=== PATIENT | male | born 1960 | race Caucasian/White ===

== ENCOUNTER 2024-02-01 09:51 | Outpatient (AMB) | payer OTHER, SELFPAY ==
--- NOTE | 2024-02-01 10:09 | A.SPINEOV_ITS ---
Intake Visit Reasons: low back pain Intake Note: Mr. 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 What he experiences iis back pain in the center of his back that radiates out to the left. He will also get a sciatic pain wh ich runs from his buttock down into his leg and gets numbness of his left foot. He was seen at [facility] and by [facility]. had originally recommended maybe doing a operation, but then referred the patient over to Dr. Pond who recommended doing a fusion. The patient was worried that it was maybe a little bit aggressive what he was trying to accomplish and what he was intending to do so they wanted to get another opinion. The patient's daughter works as a physician assistant professor of drama at [employer] and had heard of us and came today for a 3rd opinion on the matter. The patient has tremendous amounts of pain in the morning. He also has pain with activity such as bending. He has to do numerous stretching and yoga type exercises throughout the day just to be able to function. Interestingly, he can walk good distances before he gets any pain. But standing in place, sitting down for any length of time or lying down gives him tremendous pain in his back and down his leg. Been taking anti-inflammatories such as Motrin for years. He is recently tried Lyrica. He did cortisone injections and these things did seem to help for awhile but the affect seems to be wearing off. He did physical therapy for many many months. He comes today to see us with an MRI at [facility] showing severe stenosis at L4-5 and spondylolisthesis on standing flexion- extension x-rays. PMH: History of gout, BPH, PVCs, bilateral total knee replacement. No history of cardiac disease, strokes, pulmonary problems, liver disease, major abdominal surgery, bleeding disorders, blood clots etc.. Social hx: He does not smoke, drink or use any recreational drugs Medications: Flomax, metoprolol, allopurinol, nabumetone, Lyrica Allergies: None Physical exam: Awake alert oriented no acute distress, on motor exam he does have a 4-5 weakness of his left dorsiflexion and some mild weakness of his left quadriceps. Reflexes are absent at the patella bilaterally. Imaging review: Lumbar MRI done at [facility] as well as flexion- extension x-rays and standing position. This shows a grade 1 spondylolisthesis at L4-5 which translates significantly anteriorly with flexion. He does have some foraminal stenosis at L5-S1 in the left L5 foramen. Impression: 63-year-old gentleman presents to the office today for 3rd opinion on his lumbar spine. His symptomatic with midline back pain which radiates to the left side, radiates down his left leg with numbness of his foot. Has weakness of his dorsiflexion and quadriceps on the left. He has been through numerous rounds of conservative treatment in his seen 2 other surgeons. Wanted to get another opinion, because the surgeon who we saw [facility] seemed to be a little aggressive for his taste and wanted to get another thought on the matter. The original surgeon that he saw at [facility] Dr. Sanchez recommended not doing surgery at all. Dr. Soria saw the patient with me today, we reviewed his imaging and believe he had be an excellent candidate for an L4-5 oblique lumbar interbody fusion. We quoted success rate of 90% for the leg pain, 60-70% for the back pain. The patient is interested in proceeding so we booked him for March 25. Pt was given risk and benefits of surgery including but not limited to infection, hematoma , nerve injury,durotomy, weakness,bowel/bladder injury, persistent pain, adjacent segment disease as well as the option to continue with conservative treatment and patient wishes to proceed with surgery. Pt is aware they should stop their motrin, aspirin 7 days prior to surgery. All questions were answered to the best of our ability. If there is anything about this patients medical history that we have overlooked or concerns you have about us proceeding with surgery we would appreciate any input you can offer. Thank you for allowing us to care for your patient. The total time spent with this visit with this patient was 45 minutes reviewing history, physical exam, lumbar imaging review, and implementation of treatment plan or further diagnostic testing Yoshi Soria MD,PhD [facility] Coding Level of Care Code New Pt Level 4 (34956) Diagnoses Spondylolisthesis, lumbar region M43.16
== END 2024-02-01 11:10 | disposition home or self-care (01) ==
PROVIDERS: PCP Internal Medicine; Visit Provider Physician Assistant
DX: M43.16 Spondylolisthesis, lumbar region (principal)
CPT/HCPCS: 99204

== ENCOUNTER → 2024-02-01 09:51 | Outpatient (BNVA) | payer OTHER, SELFPAY | PROVIDERS: PCP Internal Medicine; Visit Provider Physician Assistant ==

== ENCOUNTER 2024-04-15 06:07 | Inpatient (IN) | payer OTHER, SELFPAY ==
--- NOTE | 2024-03-12 | ECG_ITS ---
Test Reason : pre op Blood Pressure : / mmHG Vent. Rate : 074 BPM Atrial Rate : 074 BPM P-R Int : 132 ms QRS Dur : 084 ms QT Int : 412 ms P-R-T Axes : 053 013 027 degrees QTc Int : 457 ms Sinus rhythm with frequent Premature ventricular complexes in a pattern of bigeminy Abnormal ECG No previous ECGs available Referred By: Irma Cartagena Electronically Signed By:BRITTA LOCK
[2024-03-12 12:12] VITALS: BP 136/78; PULSE 60; RESP 16; O2SAT 99; BMI 35.9
[2024-04-15] VITALS (15 sets, daily range): BP systolic 108–138; BP diastolic 64–91; PULSE 67–88; RESP 12–20; TEMP 36.1–36.9; O2SAT 95–100; BMI 36.2
--- NOTE | ~2024-04-15 | FL_ITS ---
INDICATION: Intraoperative fluoroscopy. FLUOROSCOPY: Fluoroscopy Time: 1.56 minutes Dose/air kerma: 96.921 mGy FINDINGS: Multiple intraoperative fluoroscopic images are submitted during reported L4-L5 oblique lumbar interbody fusion. Correlation with operative report. Evaluation is limited secondary to fluoroscopic technique. FL/FL guidance in OR IMPRESSION: Intra-operative fluoroscopic imaging provided by radiology during reported L4-L5 oblique lumbar interbody fusion. Please refer to operative note for further information. Electronically signed by: Claire Horne MD 04/15/2024 10:36 AM [facility]
[2024-04-15] MEDS: Gabapentin 300 MG CAPSULE PO (06:35)
[2024-04-15] MEDS: methocarbamoL 750 MG TABLET PO (06:35)
[2024-04-15] MEDS: Lactated Ringers 1,000 ML 100 ML IVCONT (06:49)
--- NOTE | 2024-04-15 06:57 | MHC.SHP ---
Pre-Procedural Eval Section A - 24 Hr Update-Section A only Date of Service: 04/15/24 The patient is an INPATIENT: No Changes since office visit: No Cold of Flu in the past 2 weeks, No New Medical Problems, No Changes in Medication and No Patient answered all questions The patient has been examined within 24 hours of the surgical procedure. The History & Physical has been completed within 30 days and I have reviewed it.: No Section B - Complete if H&P > 30 days Chief Complaint: s/p L-4-5 OLIF Allergies: Allergies Allergy/AdvReac Type Severity Reaction Status Date / Time No Known Allergies Allergy Verified 03/12/24 12:10 Review of Systems Sugical H&P ROS: Negative: Constitution, Cardiovascular, Respiratory, Neurological, Psychiatric, Hem-Onc, Allergic/Immunologic, Gastrointestinal, Genitourinary, Musculoskeletal, Integumentary, Endocrine and Eyes/Ears/Nose/Throat Exam Surgical H&P Exam: Normal: HEENT, Normal: Heart, Normal: Lungs, Normal: Extremities, Normal: Abdomen, Normal: Skin and Normal: Neurological (awake,alert,oriented x 3 ) Plan Diagnosis/Plan: Unchanged L4-5 Oblique lumbar interbody fusion Time Spent With Patient Time: Total time managing care of this patient today _6___ minutes.
--- NOTE | 2024-04-15 07:25 | HO.ANESPROP2 ---
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 Stable at yearly 10/2023 office visit. GERD: rare Tums TIMOTEO: CPAP QHS PVC: Follows cardiology, yearly routine, last 09/2023 Fall / rolled riding mower 03/10 - Right knee hematoma, LUE abrasions. Sought emergency care at [facility], no acute injury, no LOC, d/c home Bilat hearing aids PMFSH Active Problems Active Problems: All Active Problems Spondylolisthesis, lumbar region (Acute) Past Medical History Medical History (Updated 03/12/24 @ 12:38 by Shraddha Davies, RENATO) Low back pain Abrasion of left upper arm Hematoma of right knee region History of recent fall (~03/10/24) Gout Hx of seasonal allergies [place] (hard of hearing) TIMOTEO on CPAP PVC (premature ventricular contraction) GERD (gastroesophageal reflux disease) Family History Family history of problems with anesthesia: No Surgical History Surgical History (Updated 04/15/24 @ 06:42 by Shruthi Castanon RN) Hx of colonoscopy (~2019) Hx of arthroscopy of shoulder (~2013) Hx of appendectomy History of bilateral knee arthroplasty (~2016) History of Problems with Anesthesia: No Social History Social History (Updated 03/12/24 @ 12:37 by Shraddha Davies RN) Household Members: Spouse Housing: House Are you a primary customer care assistant to a significant other at home: No Do you presently have visiting nurse or other home services: No Comment: aware of trip hazards Patient Tobacco Use Status: Never used Tobacco Use of substances other than those prescribed or required for medical reasons: No Have you been hit, kicked, punched, or otherwise hurt by someone within the past year? If so, by whom?: No Are you DNR?: No Advance Directives: No Advance Directives Information Provided: Yes Advance Directives on File: No Recently lost weight without trying: No Nutrition Risks: No Nutritional Risk Poor oral hygiene: No Meds Allergies Allergy/AdvReac Type Severity Reaction Status Date / Time No Known Allergies Allergy Verified 03/12/24 12:10 Home Medications ?Medication ?Instructions ?Recorded ?Confirmed ?Last Taken ?Type acetaminophen 500 mg tablet 1,000 mg PO QID PRN Pain 03/12/24 03/12/24 04/14/24 History allopurinol 100 mg tablet 100 mg PO DAILY 03/12/24 03/12/24 04/15/24 History allopurinol 300 mg tablet 300 mg PO DAILY 03/12/24 03/12/24 04/15/24 History calcium carbonate (Tums) 2 mg PO BID PRN Gastric Reflux 03/12/24 04/15/24 04/13/24 History metoprolol succinate 25 mg 25 mg PO DAILY 03/12/24 03/12/24 04/15/24 History tablet,extended release 24 hr tamsulosin 0.4 mg capsule 0.4 mg PO DAILY 03/12/24 03/12/24 04/14/24 History Exam Height,Weight and Vital Signs: Height 5 ft 9 in Weight 110.4 kg Last Vital Signs Pulse 60 03/12/24 12:12 Resp 16 03/12/24 12:12 BP 136/78 03/12/24 12:12 Pulse Ox 99 03/12/24 12:12 O2 Del Method Room Air 03/12/24 12:12 Pertinent Lab Results Pertinent Lab Results: Lab Results 03/12/24 Range/Units 13:16 Blood Type A Negative Antibody Screen NEGATIVE Narrative Narrative: EKG 03/2024 Vent. Rate : 074 BPM Atrial Rate : 074 BPM P-R Int : 132 ms QRS Dur : 084 ms QT Int : 412 ms P-R-T Axes : 053 013 027 degrees QTc Int : 457 ms Sinus rhythm with frequent Premature ventricular complexes in a pattern of bigeminy Abnormal ECG No previous ECGs available (From outside facility 2022, SR with freq PVCs in trigeminy) ECHO 2021 Suboptimal views d/t body habitus LV size nml Borderline LVH LV sys function is nml with EF 55-60% Grade 1 DD with impaired relaxation filling pattern No wall motion abnormalities LA size is nml RV sys function is nml RA mildly dilated Trace AR Trace MR No pulmo htn No change from 2019 Airway Loose/Missing/Broken Teeth: No (crowned molars) Heart: RRR Lungs: CTAB Assessment and Plan Assessment Anesthesia Assessment: Anesthesia Plan Discussed and PAT Visit Final Anesthetic Review Family History of Problems with Anesthesia: No History of Problems with Anesthesia: No Documented by User: Rubia Lindquist DO 04/15/24 08:00 [facility] Past Medical History Medical History (Updated 03/12/24 @ 12:38 by Shraddha Davies, RN) Low back pain Abrasion of left upper arm Hematoma of right knee region History of recent fall (~03/10/24) Gout Hx of seasonal allergies [place] (hard of hearing) TIMOTEO on CPAP PVC (premature ventricular contraction) GERD (gastroesophageal reflux disease) Family History Family history of problems with anesthesia: No Surgical History Surgical History (Updated 04/15/24 @ 06:42 by Shurthi Castanon RN) Hx of colonoscopy (~2019) Hx of arthroscopy of shoulder (~2013) Hx of appendectomy History of bilateral knee arthroplasty (~2016) History of Problems with Anesthesia: No Social History Social History (Updated 03/12/24 @ 12:37 by Shraddha Davies, RENATO) Household Members: Spouse Housing: House Are you a primary customer care assistant to a significant other at home: No Do you presently have visiting nurse or other home services: No Comment: aware of trip hazards Patient Tobacco Use Status: Never used Tobacco Use of substances other than those prescribed or required for medical reasons: No Have you been hit, kicked, punched, or otherwise hurt by someone within the past year? If so, by whom?: No Are you DNR?: No Advance Directives: No Advance Directives Information Provided: Yes Advance Directives on File: No Recently lost weight without trying: No Nutrition Risks: No Nutritional Risk Poor oral hygiene: No Meds Allergies Allergy/AdvReac Type Severity Reaction Status Date / Time No Known Allergies Allergy Verified 03/12/24 12:10 Home Medications ?Medication ?Instructions ?Recorded ?Confirmed ?Last Taken ?Type acetaminophen 500 mg tablet 1,000 mg PO QID PRN Pain 03/12/24 03/12/24 04/14/24 History allopurinol 100 mg tablet 100 mg PO DAILY 03/12/24 03/12/24 04/15/24 History allopurinol 300 mg tablet 300 mg PO DAILY 03/12/24 03/12/24 04/15/24 History calcium carbonate (Tums) 2 mg PO BID PRN Gastric Reflux 03/12/24 04/15/24 04/13/24 History metoprolol succinate 25 mg 25 mg PO DAILY 03/12/24 03/12/24 04/15/24 History tablet,extended release 24 hr tamsulosin 0.4 mg capsule 0.4 mg PO DAILY 03/12/24 03/12/24 04/14/24 History Exam Exam Date and Time: 04/15/24 0725 Height,Weight and Vital Signs: Height 5 ft 9 in Weight 110.4 kg Last Vital Signs Pulse 60 03/12/24 12:12 Resp 16 03/12/24 12:12 BP 136/78 03/12/24 12:12 Pulse Ox 99 03/12/24 12:12 O2 Del Method Room Air 03/12/24 12:12 Vital Signs Pulse Rate 60 03/12/24 12:12 Respiratory Rate 16 03/12/24 12:12 Blood Pressure 136/78 03/12/24 12:12 Pulse Oximetry 99 03/12/24 12:12 Oxygen Delivery Method Room Air 03/12/24 12:12 Temperature 98.5 F 04/15/24 06:25 Pulse Rate 72 04/15/24 06:25 Respiratory Rate 20 04/15/24 06:25 Blood Pressure 136/91 H 04/15/24 06:25 Pulse Oximetry 96 04/15/24 06:25 Oxygen Delivery Method Room Air 04/15/24 06:25 Airway Mallampati Class: III TM Dist: <=3cm Neck ROM: Limited Loose/Missing/Broken Teeth: Yes (chipped front tooth) Heart: S1S2 Assessment and Plan Assessment Anesthesia Assessment: Anesthesia Plan Discussed and Chart Reviewed Final Anesthetic Review Family History of Problems with Anesthesia: No History of Problems with Anesthesia: No NPO: Yes ASA Class: II Final Preanesthetic Review: No Changes in Pt Med Stat, Meds/Allgs Chart Reviewed, Consent Obtained/Reviewed and Anes Risks/Benef Reviewed Patient Risk: Intermediate Procedure Risk: Intermediate Anesthetic Plan Anesthetic Plan: GA and Agree w/ Assess. and Plan Disposition: Standard PACU
--- NOTE | 2024-04-15 07:31 | PHA.MEDREC ---
Pharmacy Consult ? Medication Reconciliation Pharmacy has reviewed the medication reconciliation completed by nursing, all claims reflect.
--- NOTE | 2024-04-15 09:48 | P.OP_ITS ---
Operative Note Operative Note Date of Service: 04/15/24 Narrative: Preop Diagnosis: 1.) L4-5 spondylolisthesis Procedure: 1) L4-5 discectomy, arthrodesis and implantation cage through an anterolateral, retroperitoneal approach 2) L4-5 posterior instrumented fusion 3) Allograft 4) Injection of 10 cc of Exparel at the bilateral L4 transverse process for a muscular erector spinae block and additional Exparel in paravertebral tissue for postop management Consent Informed Consent was obtained for this operation. I have explained the nature, purpose and benefits of the operation. I have discussed the risks and benefit of the operation including possible complications or adverse events with patient/family. Alternative(s) were discussed with the patient with their relative benefits and risks as well as the consequences of not accepting the operation were included in obtaining consent. Surgeon: DIAMOND LOJA MD, PHD Procedure Assisted By: faheem De Luna Description of Procedure This 63-year-old male suffering from back pain. Imaging reviews an unstable L4- 5 spondylolisthesis. The patient was offered an oblique lumbar interbody fusion L4-5. The procedure complications were explained. The patient was consented. The patient was brought to the operating room and endotracheally intubated. The patient was turned in a lateral position with the left side up. Prep and drape was done followed by timeout. A small incision was made in the left lower abdominal quadrant. The muscle fascia was opened after which the 3 muscle layer was split to enter the retroperitoneal space. Dilators were docked in the anterior one third of the L4-5 disc space followed by a retractor. The retractor was opened. The L4-5 disc space was exposed. An annulotomy was done after which an elevator Holt was used to release the disc material from its endplates and to perforate the contralateral side. A partial discectomy was done. An 8, 10 and 12 height trial implant was inserted. The discectomy was completed. The endplates were prepared. An 12 x 55 mm with 0 degree lordosis 4 web cage filled with allograft was inserted into the disc space under fluoroscopic guidance. This resulted in reduction of the L4-5 spondylolisthesis. The retractor was removed. Hemostasis was done. The incision was closed in 2 layers. Steri-Strips used to approximate incision. An OpSite with Tegaderm was used to cover the incision. This marked first part of the procedure. The patient was turned prone on the Yo spine table. 2C arms were installed for fluoroscopy. Prep and drape was done followed by a second timeout. Injection of 10 cc of Exparel at the bilateral L4 transverse process for a muscular erector spinae block and additional Exparel in paravertebral tissue for postop management was given. 2 paramedian incisions were made lateral from the L4 and L5 pedicles. The muscle fascia was opened after which the muscle layer was split bluntly to expose the posterolateral gutter. The following steps were taken. A pediguard tap was used to create a transpedicular trajectory into the vertebral body. A K wire was placed. A specially designed instrument was advanced over the K wire to decorticate the posterolateral gutter in preparation for the posterolateral fusion. A pedicle screw was advanced over the K wire and the K wire was removed. The steps were done for the bilateral L4 and L5 pedicles. A total of 4 screws were placed with a diameter of 6.5 x 50 mm. Pedicle screws were connected with 45 mm giorgio bilaterally and locked down with locking caps. The extension towers were removed. The posterolateral gutter was filled with allograft to complete the posterolateral L4-5 fusion Hemostasis was done and the incision was closed in 2 layers. Steri-Strips were used to approximate the incision. An OpSite were taken and was used to cover the incision. All sponge and needle counts were correct. Patient was extubated and transferred in stable is to recovery room. Anesthesia: General Estimated Blood Loss (ml): 30 mL Duration of Surgery: 2 hours Complications: None Postoperative Plan: Admit to inpatient for observation
[2024-04-15] MEDS: HYDROmorphone HCl 0.5 MG/0.5 ML SYRINGE IVPUSH (11:01)
[2024-04-15] MEDS: 0.9 % Sodium Chloride 1,000 ML 75 ML IVCONT (13:27)
--- NOTE | 2024-04-15 13:34 | PC.NURSE ---
Pharmacy called, pt needs to be uploaded into the pyxis. They state IT is working on getting this patient in the medication machine.
--- NOTE | 2024-04-15 15:00 | PC.NURSE ---
Pharmacy and IT continue to work on issues with Medication Pyxis.
[2024-04-15] MEDS: ceFAZolin Sodium/Dextrose,Iso 2 GM/50 ML PIGGYBACK IV ×2 (15:21→20:48)
[2024-04-15] MEDS: Ketorolac Tromethamine 15 MG/ML VIAL IVPUSH ×2 (15:24→20:47)
[2024-04-15] MEDS: Acetaminophen 1,000 MG/100 ML PIGGYBACK 400 MG IV ×2 (15:54→22:14)
--- NOTE | 2024-04-15 16:36 | PC.NURSE ---
Pt doing very well Post Op, Ambulating with walker, stand by assist. Pain Minimal. Expressed excitement for d/c home tomorrow.
[2024-04-15] MEDS: Docusate Sodium 100 MG CAPSULE PO (20:47)
[2024-04-15] MEDS: diphenhydrAMINE HCL 25 MG CAPSULE 50 MG PO (22:14)
[2024-04-16] MEDS: ceFAZolin Sodium/Dextrose,Iso 2 GM/50 ML PIGGYBACK IV (02:32)
[2024-04-16] MEDS: Ketorolac Tromethamine 15 MG/ML VIAL IVPUSH ×2 (02:32→08:44)
[2024-04-16] MEDS: 0.9 % Sodium Chloride 1,000 ML 75 ML IVCONT (02:38)
[2024-04-16 03:30] VITALS: BP 127/61; PULSE 64; RESP 18; TEMP 36; O2SAT 95
[2024-04-16] MEDS: Acetaminophen 1,000 MG/100 ML PIGGYBACK 400 MG IV (04:18)
--- NOTE | 2024-04-16 06:56 | HO.NEURO.PN ---
Neurosurgery Operative Note Date of Service: 04/16/24 Narrative: POD: 1 Procedure: L4-5 OLIF Shawn reports he is up, walking around is otherwise doing well. He feels his symptoms are much better than pre-operatively. He still reports mild pain in his low back, with good relief with pain medication. He is voiding well, tolerating diet. Afebrile, vital signs stable. Strength is . Back dressings have some staining without signs of hematoma. No active sanguineous drainage. Area is dry. Plan:
[2024-04-16 07:41] VITALS: BP 135/71; PULSE 69; RESP 16; TEMP 36.3; O2SAT 98
--- NOTE | 2024-04-16 07:42 | PM.DS ---
DS: Providers Provider Date of admission: 04/15/24 06:07 Primary care physician: Donell Arredondo MD Physical Exam Vital Signs: Vital Signs: Last Vital Signs Temp 97.4 F 04/16/24 07:41 Pulse 69 04/16/24 07:41 Resp 16 04/16/24 07:41 BP 135/71 04/16/24 07:41 Pulse Ox 98 04/16/24 07:41 O2 Del Method Room Air 04/16/24 07:41 O2 Flow Rate 8 04/15/24 10:21 BMI result Body Mass Index 36.2 Discharge Plan Discharge Anticipated Discharge Date/Time: 04/16/24 07:43 Patient Disposition: Home Health Service Discharge Diagnosis: S/P L4-5 OLIF Referrals: Donell Arredondo MD [Primary Care Provider] - 1 Week Discharge Medications: No Action allopurinol 100 mg tablet 100 mg PO DAILY tamsulosin 0.4 mg capsule 0.4 mg PO DAILY allopurinol 300 mg tablet 300 mg PO DAILY metoprolol succinate 25 mg tablet extended release 24 hr 25 mg PO DAILY acetaminophen 500 mg Tablet 1,000 mg PO QID PRN (Reason: Pain) calcium carbonate [Tums] 200 mg calcium (500 mg) Tablet,Chewable 2 mg PO BID PRN (Reason: Gastric Reflux) Stand Alone Forms: Patient Portal Discharge page Print Language: Albanian
--- NOTE | 2024-04-16 08:05 | PM.DS ---
DS: Providers Provider Date of Service: 04/16/24 Date of admission: 04/15/24 06:07 Primary care physician: Donell Arredondo MD DS: Summary Time Attestation Discharge Coordination Time (in mins): 10 Quality: Safe Use of Opioids Does Pt have an Active Cancer Diagnosis on the Problem List?: No Quality: Stroke Does the patient have a stroke diagnosis?: No Physical Exam Vital Signs: Vital Signs: Last Vital Signs Temp 97.4 F 04/16/24 07:41 Pulse 69 04/16/24 07:41 Resp 16 04/16/24 07:41 BP 135/71 04/16/24 07:41 Pulse Ox 98 04/16/24 07:41 O2 Del Method Room Air 04/16/24 07:41 O2 Flow Rate 8 04/15/24 10:21 BMI result Body Mass Index 36.2 Discharge Plan Discharge Anticipated Discharge Date/Time: 04/16/24 07:43 Patient Disposition: Home Health Service Discharge Diagnosis: S/P L4-5 OLIF Referrals: Donell Arredondo MD [Primary Care Provider] - 1 Week Discharge Medications: New oxycodone 5 mg tablet See Rx Instructions .ROUTE .COMPLEX PRN (Reason: severe pain (scale score 7-10)) Qty: 30 0RF Rx Instructions: Take 1-2 tablets by mouth every 4 hours No Action docusate sodium 100 mg capsule 100 mg PO BID Qty: 30 0RF allopurinol 100 mg tablet 100 mg PO DAILY tamsulosin 0.4 mg capsule 0.4 mg PO DAILY allopurinol 300 mg tablet 300 mg PO DAILY metoprolol succinate 25 mg tablet extended release 24 hr 25 mg PO DAILY acetaminophen 500 mg Tablet 1,000 mg PO QID PRN (Reason: Pain) calcium carbonate [Tums] 200 mg calcium (500 mg) Tablet,Chewable 2 mg PO BID PRN (Reason: Gastric Reflux) Discharge Orders: Discharge Order (Routine); Ordered 04/16/24 Ordered By: Nelson Crockett Diet: Advance to usual diet Activity on Discharge: As tolerated Stand Alone Forms: Patient Portal Discharge page Print Language: Somali Care Plan Goals: Returned to normal activity as tolerated Health Concerns: None Plan of Treatment: Follow-up in clinic in 2-3 weeks Assessment: POD: 1 Procedure: L4-5 OLIF Shawn was seen sitting upright in bedside chair this morning on [address]. Patient reports he is up walking around is otherwise doing well. He feels his symptoms are much better than pre-operatively. He still reports mild pain in his low back, with good relief with pain medication. He is voiding well, tolerating diet. Afebrile, vital signs stable. Full strength 5/5 bilateral LE. Back dressings have some staining without signs of hematoma. No active sanguineous drainage. Area is dry. Plan: Patient meets criteria to be medically discharged home. He was seen at bedside with Dr. Soria. I will send in Rx for pain control and bowel regimen to patient requested pharmacy [facility]. Nelson Soria MD,PhD [facility] Patient Instructions: Lumbar Spinal Fusion (DC) Discharge Date/Time: 04/16/24 14:00
--- NOTE | 2024-04-16 08:10 | P.DS_ITS ---
DS: Providers Provider Date of Service: 04/16/24 Date of admission: 04/15/24 06:07 Primary care physician: Donell Arredondo MD DS: Summary Time Attestation Discharge Coordination Time (in mins): 14 Quality: Safe Use of Opioids Does Pt have an Active Cancer Diagnosis on the Problem List?: No Quality: Stroke Does the patient have a stroke diagnosis?: No Physical Exam Vital Signs: Vital Signs: Last Vital Signs Temp 97.4 F 04/16/24 07:41 Pulse 69 04/16/24 07:41 Resp 16 04/16/24 07:41 BP 135/71 04/16/24 07:41 Pulse Ox 98 04/16/24 07:41 O2 Del Method Room Air 04/16/24 07:41 O2 Flow Rate 8 04/15/24 10:21 BMI result Body Mass Index 36.2 Discharge Plan Discharge Anticipated Discharge Date/Time: 04/16/24 07:43 Patient Disposition: Home Health Service Discharge Diagnosis: S/P L4-5 OLIF Referrals: Donell Arredondo MD [Primary Care Provider] - 1 Week Discharge Medications: New oxycodone 5 mg tablet See Rx Instructions .ROUTE .COMPLEX PRN (Reason: severe pain (scale score 7- 10)) Qty: 30 0RF Rx Instructions: Take 1-2 tablets by mouth every 4 hours No Action allopurinol 100 mg tablet 100 mg PO DAILY tamsulosin 0.4 mg capsule 0.4 mg PO DAILY allopurinol 300 mg tablet 300 mg PO DAILY metoprolol succinate 25 mg tablet extended release 24 hr 25 mg PO DAILY acetaminophen 500 mg Tablet 1,000 mg PO QID PRN (Reason: Pain) calcium carbonate [Tums] 200 mg calcium (500 mg) Tablet,Chewable 2 mg PO BID PRN (Reason: Gastric Reflux) Discharge Orders: Discharge Order (Routine); Ordered 04/16/24 Ordered By: Nelson Crockett Diet: Advance to usual diet Activity on Discharge: As tolerated Stand Alone Forms: Patient Portal Discharge page Print Language: Cymro Care Plan Goals: Returned to normal activity as tolerated Health Concerns: None Plan of Treatment: Follow-up in clinic in 2-3 weeks Assessment: POD: 1 Procedure: L4-5 OLIF Shawn was seen sitting upright in bedside chair this morning on . Patient reports he is up walking around is otherwise doing well. He feels his symptoms are much better than pre-operatively. He still reports mild pain in his low back, with good relief with pain medication. He is voiding well, tolerating diet. Afebrile, vital signs stable. Full strength 5/5 bilateral LE. Back dressings have some staining without signs of hematoma. No active sanguineous drainage. Area is dry. Plan: Patient meets criteria to be medically discharged home. He was seen at bedside with Dr. Soria. I will send in Rx for pain control and bowel regimen to patient requested pharmacy [facility]. Nelson Soria MD,PhD [facility]
[2024-04-16] MEDS: allopurinoL 300 MG TABLET PO (08:43)
[2024-04-16] MEDS: allopurinoL 100 MG TABLET PO (08:43)
[2024-04-16] MEDS: Docusate Sodium 100 MG CAPSULE PO (08:43)
[2024-04-16] MEDS: Tamsulosin HCL 0.4 MG CAPSULE PO (08:43)
[2024-04-16] MEDS: Metoprolol Succinate ER 25 MG TAB.ER.24H PO (08:43)
--- NOTE | 2024-04-16 08:44 | HO.POSTANES ---
Post Anesthesia Evaluation Post Anesthesia Evaluation Date of Service: 04/15/24 Vital Signs: Vital Signs Temp Pulse Resp BP Pulse Ox O2 Del Method 04/16/24 07:41 97.4 F 69 16 135/71 98 Room Air 04/16/24 03:30 96.8 F 64 18 127/61 95 CPAP 04/15/24 23:32 96.9 F 77 16 117/67 96 CPAP 04/15/24 21:31 97.3 F 87 16 138/77 96 Room Air Anesthesia: General Endotracheal-GETA Mental Status: Awake Pain Control: Satisfactory Nausea/Vomiting: None Hydration: Adequate Anesthesia-Related Issues: No Anes. Related Issues
--- NOTE | 2024-04-16 09:16 | MHC.CM.PN ---
Pt self-care, lives at home with his who will transport him at discharge. Education provided regarding HCP, pt declined to make one at this time. PCP: Dr. Donell Arredondo
[2024-04-16 12:00] VITALS: BP 129/63; PULSE 75; RESP 16; TEMP 36.5; O2SAT 97
[2024-04-16] MEDS: oxyCODONE HCl Immed Release 5 MG TABLET PO (13:30)
== END 2024-04-16 14:00 | disposition home health service (06) | DRG 304 ==
LOC: HO.SSSA 06:13 → HO.S3 12:07
PROVIDERS: Neurological Surgery; Admitting Provider Physician Assistant; PCP Internal Medicine; Visit Provider Physician Assistant
PROC: 0SG00A0 Fusion of Lumbar Vertebral Joint with Interbody Fusion Device, Anterior Approach, Anterior Column, Open Approach (ICD-10-PCS; principal; 2024-04-15 07:30)
DX: M43.16 Spondylolisthesis, lumbar region (principal); G47.33 Obstructive sleep apnea (adult) (pediatric); K21.9 Gastro-esophageal reflux disease without esophagitis; Z79.899 Other long term (current) drug therapy
CPT/HCPCS: 86850; 86900; 86901; 93005; 97116; 97161; 97530; C1713; C9290; J0131; J0665; J0690; J1100; J1171; J1885; J2003; J2250; J2405; J2704; J3010; L8699

== ENCOUNTER → 2024-04-15 06:07 | Outpatient (BNV) | payer OTHER, SELFPAY | PROVIDERS: Admitting Provider Physician Assistant; PCP Internal Medicine; Visit Provider Neurological Surgery | DX: M43.16 Spondylolisthesis, lumbar region (principal) | CPT/HCPCS: 20930; 22558; 22612; 22840; 22853; 99024; 99499 ==

== ENCOUNTER 2024-05-05 12:50 | Outpatient (AMB) | payer OTHER, SELFPAY ==
--- NOTE | 2024-05-05 13:00 | HO.SPINEOV ---
Intake Visit Reasons: 1st post op Intake Note: Mr. Miller is here today for his 1st post op visit. Hydraulic Controls Technician Required: No Allergies No Known Allergies Allergy (Verified 03/12/24 12:10) Assessment & Plan Assessment & Plan (1) Spondylolisthesis, lumbar region: Code(s): M43.16 - Spondylolisthesis, lumbar region Category: Medical Plan Mr Miller is back for his 1st postoperative visit. He had an L4-5 oblique lumbar interbody fusion done for grade 1-2 spondylolisthesis. He has had complete resolution of his left leg pain. His dorsiflexion strength is stronger. He has been having some left buttock pain but it is pretty manageable. He is just taking 1 Tylenol a day at this point. He is not having any significant back pain. He did very well once he got home, he is back to driving and going out for walks every day. His wounds have healed up beautifully. His strength is full on my exam. We discussed activity guidelines, restrictions and expectations after lumbar fusion. I will see him back in 6 weeks with x-rays. Yoshi Soria MD, PhD [facility] Coding Level of Care Code Global (53819) Diagnoses Spondylolisthesis, lumbar region M43.16
== END 2024-05-05 13:41 | disposition home or self-care (01) ==
PROVIDERS: PCP Internal Medicine; Visit Provider Physician Assistant
DX: M43.16 Spondylolisthesis, lumbar region (principal)
CPT/HCPCS: 99024

== ENCOUNTER 2024-05-05 12:50 | Outpatient (REF) | payer OTHER, SELFPAY | END 2024-05-05 12:51 | disposition home or self-care (01) | LOC: HO.HOSX 12:50 | PROVIDERS: PCP Internal Medicine; Visit Provider Physician Assistant | DX: Z13.89 Encounter for screening for other disorder (principal) ==

== ENCOUNTER 2024-06-16 13:04 | Outpatient (AMB) | payer OTHER, SELFPAY ==
--- NOTE | 2024-06-16 13:44 | A.SPINEOV_ITS ---
Intake Visit Reasons: 2nd post op/with xrays Intake Note: Mr. Miller is here today for his 2nd post op with xrays. Rehabilitation Program Coordinator Required: No Allergies No Known Allergies Allergy (Verified 03/12/24 12:10) Assessment & Plan Assessment & Plan (1) Spondylolisthesis, lumbar region: Code(s): M43.16 - Spondylolisthesis, lumbar region Category: Medical Plan Mr Miller is 2 months out from his L4-5 oblique lumbar interbody fusion. He seems to be coming along nicely. He is still little hesitant to do a lot of movements, especially bending. He started back at the gym for a little bit but then got a little worried when he was doing maybe a little too much and felt some back discomfort. Since then he has really just been walking. He did have some trouble with his back with a lot of standing over the holidays but that seems to have quite a down now. We discussed activity guidelines, restrictions expectations after oblique lumbar interbody fusion. His x-rays today looked excellent. I think it is about time we reintroduced him to some of his activities ever so slowly. I gave him a referral to PT and I would like to see him back in 2 months to see how things are going closer to the springtime. Yoshi Soria MD, PhD [facility] Orders: Orders PT Evaluation and Treatment Today M43.16 - Spondylolisthesis, lumbar region Coding Level of Care Code Global (28108) Diagnoses Spondylolisthesis, lumbar region M43.16
== END 2024-06-16 14:15 | disposition home or self-care (01) ==
PROVIDERS: PCP Internal Medicine; Visit Provider Physician Assistant
DX: M43.16 Spondylolisthesis, lumbar region (principal)
CPT/HCPCS: 99024

== ENCOUNTER 2024-06-16 13:04 | Outpatient (REF) | payer OTHER, SELFPAY ==
--- NOTE | ~2024-06-16 | XR_ITS ---
EXAMINATION: XR LUMBAR SPINE 4 OR MORE VIEWS HISTORY: M43.16 - Spondylolisthesis, lumbar region COMPARISON: There are no prior studies for comparison. FINDINGS: AP, and neutral, flexion, and extension lateral views of the lumbar spine are submitted. The patient is status post posterior fusion of L4 and L5 with pedicle screws and spinal stabilization rods. An intervertebral spacer is also noted at this level. The orthopedic hardware is intact. Five nonrib-bearing lumbar vertebral bodies are identified, maintaining normal height without evidence of fracture. There is minimal spondylolisthesis of L4 on L5 without change with flexion or extension.. There is no abnormal motion with flexion or extension. The intervertebral disc spaces are maintained. Incidental note is made of an 8 mm calcification overlying the lower pole of the left renal shadow. XR/XR lumbar spine 4V min IMPRESSION: Status post posterior fusion of L4 and L5. Minimal spondylolisthesis at this level without change with flexion or extension. Electronically signed by: Sean Navas MD 06/19/2024 09:33 AM FELICIANO
== END 2024-06-16 13:05 | disposition home or self-care (01) ==
LOC: HO.HOSX 13:04
PROVIDERS: PCP Internal Medicine; Visit Provider Physician Assistant
DX: M43.16 Spondylolisthesis, lumbar region (principal)
CPT/HCPCS: 72110

== ENCOUNTER 2024-08-11 11:23 | Outpatient (AMB) | payer OTHER, SELFPAY ==
--- NOTE | 2024-08-11 11:24 | HO.SPINEOV ---
Intake Visit Reasons: 2 month f/u Intake Note: Mr. Miller is here today for a 2 month F/U. Bookstore Clerk Required: No Allergies No Known Allergies Allergy (Verified 08/11/24 11:25) Assessment & Plan Assessment & Plan (1) Spondylolisthesis, lumbar region: Code(s): M43.16 - Spondylolisthesis, lumbar region Category: Medical Plan Mr Miller is 4 months out from his oblique lumbar interbody fusion L4-5. He is otherwise doing quite well and very happy that he had the surgery. He does get a little bit of back discomfort if he is standing for too long but otherwise no issues. He has been working with physical therapy on some hip and pelvic alignment work. He has not been doing any heavy lifting etc.. We discussed activity guidelines, restrictions and expectations after lumbar fusion. It seems as though he has healed up beautifully and at this point he has no limitations. He was asking about golf, and I told him just to start very slowly and work with his physical therapy team about developing the mobility to do it safely. At this point he can see us back on an as-needed basis. Total amount of time spent in this visit was 20 minutes in discussion of symptoms, previous lumbar x-ray imaging results and subsequent plan of care Yoshi Soria MD,PhD [facility] Coding Level of Care Code Est Pt Level 3 (52512) Diagnoses Spondylolisthesis, lumbar region M43.16
--- OUTSIDE RECORDS SUMMARY | 2024-08-11 13:30 | XMS_ITS | Continuity of Care Document ---
Author Organization [place] [facility] Address [address] [address] Assessment Encounter Date Assessment Date Assessment LastModified by Organization Details LastModified Time 08/06/2024 08/06/2024 Hearing Aid Fitting Details Date: Media Marketing Manager & Model: Phonak Audeo L90 RL's Color: graphite zapata Ear couplin M 3 R & L Serial Numbers Right: [id number] Left: [id number] Warranty Expiration: 07-18-2026 Accessories: Cerustops Programs: [email or web address] Not available 08/06/2024 16:33:08 Plan of Treatment Reminders Order Date Submit Date Provider Last Modified By Organization Details Last Modified Time Details Appointments None record ed. Lab None record ed. Referral None record ed. Procedures None record ed. Surgeries None record ed. Imaging None record ed. Medication Orders None record ed. Patient TargetsNo targets recorded. Patient InstructionsNo instructions recorded. Reason for Referral None Reported. Results Created Date Observation Date Name Description Value Unit Range Abnormal Flag Note LastModifiedBy Organization Detail LastModifiedTime 08/07/19 25 audio gram No observ ation record ed. BARCODE Not Available 2024 09:38:53 Result Notes None recorded. Problems Name Problem SNOMED Code Status Onset Date Resolution Date Notes Provider Name and Address Organization Details Recorded Time Sensorine ural hearing loss of bilateral ears 388583720 Active 2017 Sensorine ural hearing loss, bilateral ; Note: Date Diagnosed : 8 11:05 AM (H90.3) Not Available [facility] 4 02:22:03 Sensorine ural hearing loss 95240715 Active 2017 Sensorine ural hearing loss, unilatera l, left ear, with unrestric baron hearing on the contralat eral side; Note: Date Diagnosed : 03/18/2018 4:41 PM (H90.42) Not Available [facility] 4 02:21:58 Foreign body in right ear 99239981506 450590 Active 2019 Foreign body in right ear, initial encounter ; Note: Date Diagnosed : 02/02/2020 3:24 PM (T16.1XXA ) Not Available [facility] 4 02:21:28 Problem Notes None recorded. Medical Equipment None Reported. Medications Name Sig Start Date Stop Date Status Note LastModified by Organization Details LastModified Time allopurinol 100 mg tablet TAKE 1 TABLET BY MOUTH EVERY DAY WITH 300MG ALLOPURIN OL. (TOTAL DAILY DOSE 400MG) active Not Available Not Available No t Available tamsulosin 0.4 mg capsule TAKE 1 CAPSULE BY MOUTH EVERY DAY active Not Available Not Available No t Available allopurinol 300 mg tablet TAKE 1 TABLET BY MOUTH EVERY DAY WITH 100 MG FOR TOTAL 400MG active Not Available Not Available No t Available metoprolol succinate ER 25 mg tablet,extend ed release 24 hr TAKE 1 TABLET BY MOUTH EVERY DAY FOR 90 DAYS active Not Available Not Available No t Available nabumetone 500 mg tablet TAKE 1 TO 2 TABLETS BY MOUTH TWICE A DAY active Not Available Not Available No t Available oxycodone 5 mg tablet TAKE 1 TO 2 TABLETS BY MOUTH EVERY 4 HOURS NEEDED FOR SEVERE PAIN active Not Available Not Available No t Available pregabalin 75 mg capsule TAKE 1 CAPSULE BY MOUTH TWICE A DAY FOR 30 DAYS active Not Available Not Available No t Available Vitals None Recorded Social History None recorded. Functional Status None recorded. Mental Status None recorded. Family History Nothing Reported. Medical History No medical history recorded. Past Encounters Encounter ID Performer Location Encounter Start Date Encounter Closed Date Diagnosis/Indication Diagnosis SNOMED-CT Code Diagnosis ICD10 Code Diagnosis Note [id number] JAZZY BOWSER MA, CCC-A [facility] - [address] [place] [address] 08/06/2024 13:09:34 08/07/2024 07:36:27 Sensorineural hearing loss 29161421 H90.42 tweaked his aids today and conducted Verifit, then ran feedback alliance manager. He was wanting aids a little louder but was bothered by sudden loud sounds. Made changes; he will call if not OK Jazzy Bowser MA [facility] Health Concerns Section Related Observation LastModified by Organization Jey sosa LastModified Time None Recorded Concern Status LastModified by Organization Details LastModified Time None Recorded Payers Encounter Date Sequence Insurance Name Policy Number Policy Myers Covered Member ID Myers Member ID Guarantor Name 08/06/2024 1 [facility] [id number] Shawn Miller [id number] Shawn Miller
--- OUTSIDE RECORDS SUMMARY | 2024-08-11 13:31 | XMS_ITS ---
Author Organization [facility] Address [address] [facility] [place] [address] Care Team Providers Care Flag Maker Name Role Phone Donell Arredondo MD Primary Care Provider Sancho Downey [phone] REASON FOR VISIT INS Encounters Encounter Location Date Provider Diagnosis [facility] [address] [address] 07/02/2024 Sancho Diez Plan Of Treatment No Information Progress Notes * PAUL MelitonemiDOB: 0 (63 yo M)Acc No.[id number]:07/02/2024 Patient:?Shawn MILLER :1960???Age:63 Y???Sex:Male Address:[address], [place], [address] * true * Date:? Generated for Printi gus/Famalg/eTransmitting on:?08/11/2024 01:30 PM EST
--- OUTSIDE RECORDS SUMMARY | 2024-08-11 13:31 | XMS_ITS | Clinical Summary ---
Author Organization [address] [facility] Address [address] [place] [address] Phone Care Team Providers Care Size Cutter Name Role Phone Donell Arredondo MD Primary Care Provider [phone] Surgical History Surgery Date Site/Laterality Comments KNEE SURGERY 2016 PROCEDURE: HISTORICAL KNEE SURGERY TOTAL KNEE ARTHROPLASTY PROCEDURE: HISTORICAL TOTAL KNEE REPLACE VASECTOMY PROCEDURE: HISTORICAL VASECTOMY KNEE SURGERY PROCEDURE:KNEE SURGERY JOINT REPLACEMENT PROCEDURE:JOINT REPLACEMENT Medical History Medical History Date Comments Asthma 10/30/2017 DX:Asthma Headache 10/30/2017 DX:Headache History of knee replacement 10/30/2017 DX:H istory of knee replacement Morbid obesity with BMI of 4 5.0-49.9, adult ([facility]) 10/30/2017 DX:Morbid obesity with BMI o f 45.0-49.9, adult ([facility]) Obstructive sleep apnea syndrome 05/08/2017 DX:Obstructive sleep apnea syndrome Primary insomnia 05/08/2017 DX:Primary inso mnia Restless leg syndrome 05/08/2017 DX:Restles s leg syndrome Gout DX:Gout Sleep apnea DX:Sleep apnea Family History Medical History Relation Name Comments Arthritis Father Diabetes Father Heart disease Father Diabetes Mother Heart disease Mother Relation Name Status Comments Father Mother Social History Tobacco Use Types Packs/Day Years Used Date Smoking Tobacco: Former Alcohol Use Standard Drinks/Week Comments Yes 0 (1 standard drink = 0.6 oz pur e alcohol) Sex and Gender Information Value Date Recorded Sex Assigned at Not on file Legal Sex Male 11:09 AM EST Gender Identity Not on file Sexual Orientation Not on file Obstetrics History Last Filed Vital Signs Vital Sign Reading Time Taken Comments Blood Pressure 132/76 09/19/2021 2:20 PM EDT Sitting L Arm Pulse 74 09/19/2021 2:20 PM EDT Temperature - - Respiratory Rate - - Oxygen Saturation - - Inhaled Oxygen Concentration - - Weight 120 kg (263 lb 9.6 oz) 2:20 PM EDT Height 175.3 cm (5' 9 ) 09/19/2021 2:20 PM EDT Body Mass Index 38.93 09/19/2021 2:20 PM EDT Plan of Treatment Health Maintenance Due Date Last Done Comments DTaP,Tdap,and Td Vaccines (1 - Tdap) 12/23/1978 Pneumococcal Vaccine: 50+ Ye ars (1 of 2 - PCV) 12/23/1978 Pneumococcal Vaccine: Pediat rics (0 to 5 Years) and At-Risk Patients (6 to 64 Years) (1 of 2 - PCV) 12/23/1978 Zoster Vaccines (1 of 2) 12/23/2009 RSV Immunization Patients 60 + Years Old (1 - Risk 60-74 years 1-dose series) 2019 Cholesterol Screening (Lipid Panel) 05/20/2022 Colorectal Cancer Screening: Colonoscopy 05/20/2022 Depression Screening 05/20/2022 HIV Screening 05/20/2022 Hepatitis C Screening 05/20/2022 Social Influencers of Health Screening 05/20/2022 COVID-19 Vaccine ( - 2023-2 5 season) 2024 Influenza Vaccine (#1) 2024 03/23/2021 MMR Vaccines Aged Out 09/10/2018 No longer eligi ble based on patient's age to complete this topic HIB Vaccines Aged Out No longer eligi ble based on patient's age to complete this topic HPV Vaccines Aged Out No longer eligi ble based on patient's age to complete this topic Hepatitis A Vaccines Aged Out No long er eligible based on patient's age to complete this topic Hepatitis B Vaccines Aged Out No long er eligible based on patient's age to complete this topic IPV Vaccines Aged Out No longer eligi ble based on patient's age to complete this topic Meningococcal ACWY Vaccine Aged Out N o longer eligible based on patient's age to complete this topic Meningococcal B Vacine Aged Out No lo nger eligible based on patient's age to complete this topic RSV Immunization Patients Un manisha 20 months Aged Out No longer eligible b ased on patient's age to complete this topic Varicella Vaccines Aged Out No longer eligible based on patient's age to complete this topic Insurance [facility] [address] [place] [id number] Care Teams Size Cutter Relationship Specialty Start Date End Date Donell Arredondo MD [address] [facility] [address] [place] PCP - General Internal Medicine 05/23/16
--- OUTSIDE RECORDS SUMMARY | 2024-08-11 13:31 | XMS_ITS | Patient Health Record ---
Author Organization [facility] Address [address] [facility] [place] [address] Care Team Providers Care Pain Management Nurse Practitioner Name Role Phone Donell Arredondo MD Primary Care Provider Sancho Downey Unavailable [phone] Allergies No Known Allergies Reason For Referral No Information Medications Medication SIG (Take, Route, Frequency, Duration) Notes Start Date End Date Status Allopurinol Active Acetaminophen Active Metoprolol Succinate 25 MG 1 capsule Ora lly Once a day Active Calcium Carbonate Ac tive Tamsulosin HCl 0.4 MG 1 capsule Orally O nce a day Active Social History Tobacco Use: Social History Observation Description Date Details (start date - stop date) Never Smoker NA - NA Tobacco use other than smoking: Question Answer Notes Are you an other tobacco user? No Tobacco Control (Standard) Question Answer Notes Tobacco use: Nonsmoker Additional Findings: Tobacco non-user Current no nsmoker AUDIT-C (Standard) Question Answer Notes Did you have a drink contain ing alcohol in the past year? Yes How often did you have a dri nk containing alcohol in the past year? Declined to specify (0 point) How many drinks did you have on a typical day when you were drinking in the past year? Declined to specify (0 point) How often did you have six o r more drinks on one occasion in the past year? Declined to specify (0 point) Points 0 Interpretation Negative Vital Signs Heart Rate 70 /min 07/10/2024 Blood pressure diastolic 93 mm Hg 07/10/2024 Height 5ft 9 in in 07/10/2024 Blood pressure systolic 169 mm Hg 07/10/2024 Weight 245 lbs 07/10/2024 BMI 36.18 kg/m2 07/10/2024 Encounters Encounter Location Date [facility] [address] [place] [address] 07/10/2024 Sancho Diez Pain in left foot M79.672 and Tailor's bunion of left foot M21.622 [facility] [address] [facility] [address] [place] [address] 07/02/2024 Sancho Diez Assessments Encounter Date Diagnosis (ICD Code) Assessment Notes Treatment Notes Treatment Clinical Notes Section Notes 07/10/2024 Pain in left foot (ICD-10 - M79.672) 07/10/2024 Tailor's bunion of left foot (ICD-10 - M21.622) Plan Of Treatment No Information Insurance Providers Payer Name Payer Address Payer Phone Subscriber Number Group Number Insured Name Patient Relationship to Insured Coverage Start Date Coverage End Date [facility] [address] [place] [address] [id number] Shawn Miller Self - patient is the insured Medical (General) History Medical History History ICD Code Back,Hip,and Knee pain Gall bladder problems Gout Joint implants/screws Surgical History Surgery Date(Month/Year) left knee replacement 2019 right knee replacement 2016 shoulder surgery bone spurs 2018 vasectomy 1994 L4-5 fusion 04/2024
--- OUTSIDE RECORDS SUMMARY | 2024-08-11 13:31 | XMS_ITS | Clinical Summary ---
Author Organization [facility] Address [address] [place] [address] Care Team Providers Care Ground Crew Chief Name Role Phone Donell Arredondo MD Primary Care Provider [phone] Allergies No known active allergies Medications Medication Sig Dispensed Refills Start Date End Date Status allopurinol (ZYLOPRIM) 100 MG tablet 0 12/07/2016 Active allopurinol (ZYLOPRIM) 300 MG tablet 0 12/07/2016 Active nabumetone (RELAFEN) 750 MG tablet 0 12/07/2016 Active Celecoxib (CELEBREX PO) Take by mouth. 0 Active naproxen (NAPROXEN DR) 500 MG EC tablet Take 500 mg by mouth 2 (two) times a day with meals. 0 Active pramipexole (MIRAPEX) 0.125 MG tablet Take 0.125 mg by mouth every night at bedtime. 5 11/07/2017 Active albuterol (PROVENTIL HFA;VENTOLIN HFA) 108 (90 Base) MCG/ACT inhaler Inhale 2 puffs into the lungs. 0 Active pramipexole (MIRAPEX) 0.125 MG tablet Take 0.125 mg by mouth. 0 04/02/2018 Active nabumetone (RELAFEN) 750 MG tablet Take 1 tablet (750 mg total) by mouth every 12 (twelve) hours as needed. for pain 120 tablet 2 12/25/2019 Active gabapentin (NEURONTIN) 300 MG capsule START 1 CAPSULE BY MOUTH 2 HOURS BEFORE BEDTIME. INCREASE NEEDED BY 1 CAP PER WEEK TO MAX 3 CAPS 0 08/05/2020 Active diazePAM (VALIUM) tablet 5 mg Take 5 mg by mouth daily. 0 07/27/2020 Active metoprolol tartrate (LOPRESSOR) 25 MG tablet metoprolol tartrate 25 mg tablet 0 Active predniSONE (DELTASONE) tablet 20 mg prednisone 20 mg tablet Take 3 tabs po qd days 1-2 then take 2 tabs po qd days 3-6 0 Active amoxicillin (AMOXIL) 500 MG tablet Take 4 tabs 1 hour prior to dental appointment, colonoscopy or surgical procedure 20 tablet 3 10/26/2021 Active Active Problems Problem Noted Date Diagnosed Date Knee stiffness, right 02/19/2018 Pedal edema 08/09/2017 Right ankle swelling 08/09/2017 Pain and swelling of lower leg, right 04/03/2017 Family History Medical History Relation Name Comments Arthritis Father Diabetes Father Heart disease Father Diabetes Mother Heart disease Mother Relation Name Status Comments Father Mother Social History Tobacco Use Types Packs/Day Years Used Date Smoking Tobacco: Former Alcohol Use Standard Drinks/Week Comments Yes 0 (1 standard drink = 0.6 oz pur e alcohol) monthly Sex and Gender Information Value Date Recorded Sex Assigned at Not on file Gender Identity Not on file Sexual Orientation Not on file Job Start Date Occupation Industry Not on file Not on file Not on file Last Filed Vital Signs Vital Sign Reading Time Taken Comments Blood Pressure - - Pulse - - Temperature - - Respiratory Rate - - Oxygen Saturation - - Inhaled Oxygen Concentration - - Weight 108.9 kg (240 lb) 01/17/2017 2:07 PM EDT Height 149.9 cm (4' 11 ) 01/17/2017 2:07 PM EDT Body Mass Index 48.47 01/17/2017 2:07 PM EDT Plan of Treatment Health Maintenance Due Date Last Done Comments Hepatitis C Screening 1960 COVID-19 Vaccine (#1) 06/25/1960 Depression Screening 1971 Preventative Health Evaluation 12/23/1977 DTap / Tdap / Td (1 - Tdap) 12/23/1978 Colon Cancer Screening (Colonoscopy) 12/23/2004 Shingrix-Zoster Vaccine (1 of 2) 12/23/2009 Influenza Vaccine (#1) 2024 03/23/2021 Pneumococcal Vaccine (1 of 1 - PCV) 12/23/2024 RSV Adult > 60+ Yrs or Pregn ant (1 - 1-dose 75+ series) 12/23/2034 Hepatitis B Vaccines Aged Out No long er eligible based on patient's age to complete this topic Pneumococcal Vaccine Aged Out No long er eligible based on patient's age to complete this topic RSV Ped < 20 months Aged Out No longe r eligible based on patient's age to complete this topic Care Teams Ground Crew Chief Relationship Specialty Start Date End Date Donell Arredondo MD [address] [place] [address] PCP - General Shear Assembler 01/05/17
--- OUTSIDE RECORDS SUMMARY | 2024-08-11 13:31 | XMS_ITS ---
Author Organization [facility] Address [address] [place] [address] Care Team Providers Care Investigations Consultant Name Role Phone Donell Arredondo MD Primary Care Provider Sancho Downey [phone] Allergies No Known Allergies REASON FOR VISIT Last Visit PCP 06/06/24, Foot pain Medications Medication SIG (Take, Route, Frequency, Duration) [...] point) Points 0 Interpretation Negative Vital Signs Height 5ft 9 in in 07/10/2024 Weight 245 lbs 07/10/2024 BMI 36.18 kg/m2 07/10/2024 Blood pressure systolic 169 mm Hg 07/10/19 25 Blood pressure diastolic 93 mm Hg 025 Heart Rate 70 /min 07/10/2024 Encounters Encounter Location Date Provider Diagnosis [facility] [address] [address] 07/10/2024 Sancho Diez Pain in left foot M79.672 and Tailor's bunion of left foot M21.622 Assessments Encounter Date Diagnosis (ICD Code) Assessment Notes Treatment Notes Treatment Clinical Notes Section Notes 07/10/2024 Pain in left foot (ICD-10 - M79.672) 07/10/2024 Tailor's bunion of left foot (ICD-10 - M21.622) Plan Of Treatment Next Appt Details Follow Up: prn, Reason: Progress Notes * Shawn MILLERDOB: 0 (63 yo M)Acc No.[id number]:07/10/2024 Progress Notes Patient:?Shawn MILLER Provider:?Sancho Diez D.P.M. :1960???Age:63 Y???Sex:Male Sascha e:07/10/2024 Address:[address], [facility] Pcp:Donell Arredondo MD Subjective: * Chief Complaints: * ???Last Visit PCP 06/06/24Fo ot pain * HPI: ???Foot Pain:?Location:?Sub 5th MTH left.?Duration:?several months.?Onset:?unknown, denies trauma.?Course:?worse.?Aggravated:?any pressure, standing, walking.?Treatments:?rest/alter normal daily activity.?Severity/Quality:?moderate.? * ROS:?General/Constitutional:?Nausea?denies.?Vomiting?denies.?Hunger Thirst?denies.?Loss appetite?denies.?Chills?denies.?Fatigue?denies.?Fever?denies.?Night Sweats?denies.?Unexplained weight loss?denies.?Unexplained weight gain?denies.?HEENTM:?Dentures?denies.?Dizziness?denies.?Glasses/contacts?admits.?Retinopathy?de nies.?Blurred/double vision?denies.?TMJ?denies.?Discharge/drainage?denies.?Implants?denies.?Sore throat?denies.?Dental implants?denies.?Hard of hearing ?denies.?Difficulty chewing/swallowing/speaking?denies.?Nose bleeds?denies.?Sore mouth?denies.?Respiratory:?On Oxygen?denies.?Pneumonia/pleurisy?denies.?Bronchitis?denies.?Emphysema?denies.?C oughing?denies.?Cough blood?denies.?Shortness of breath?denies.?Wheezing?denies.?Cardiovascular:?Pacemaker?denies.?MVP?denies.?WPW?denies.?CHF?denies.?Heart attack?denies.?Septal defect?denies.?Rapid beat?denies.?Chest pain ?denies.?Atrial Fib.?denies.?Murmur/Palpitations?denies.?Gastrointestinal:?Hemorrhoids?denies.?Stomach/Abdominal pain?denies.?Dark blood stool?denies.?Irritable bowel ?denies.?Constipation?denies.?Diarrhea?denies.?Hematology:?Swelling?denies.?Clots?denies.?Varicose Veins?denies.?Bruising?denies.?Bleeding problem?denies.?Genitourinary:?Blood urine?denies.?Frequent/Painfu/urination/bladder control?admits.?Kidney stones?denies.?Infection (UTI)?denies.?Nephropathy?denies.?sex trans dis (STD)?denies.?Prostate?denies.?Musculoskeletal:?Hammertoes?denies.?Bunions?denies.?Back Pain?denies.?Muscle Cramps/ Resting?denies.?Muscle cramps / walking?denies.?Generalized aches and pains?denies.?Weakness?denies.?Integ.:?Delgado?denies.?Scars?denies.?Corns/calluses?admits.?Ingrown nails?denies.?Painful nails?denies.?Open Sores?denies.?Rashes?denies.?Neurologic:?Difficulty sleeping?denies.?Brain disorder?denies.?Numbness?denies.?Balance trouble?admits.?Confusion?denies.?Fainting/blackouts?denies.?Tingling?denies.?Tr emors?denies.? * Medical History:? * Surgical History:?left knee replacement 2019right knee replacement 2016shoulder surgery bone spurs 2018vasectomy 7201L3-2 fusion 04/2024 * Hospitalization/Major Diagno stic Procedure:?No Hospitalization History. * Family History:?Mother: charbel e, diagnosed with Unspecified essential hypertension.?Father: , diagnosed with Diabetic - NIDDM, Unspecified essential hypertension.?Brother: diagnosed with Diabetic - NIDDM.? * Social History:?Tobacco Use:?Tobacco use other than smoking?Are you an other tobacco user??No ?Tobacco Control (Standard)?Tobacco use:?Nonsmoker ?Additional Findings: Tobacco non-user?Current nonsmoker ???Drugs/Alcohol:?Drugs?Have you used drugs other than those for medical reasons in the past 12 months??No ???Miscellaneous:?Caffeine: yes, frequency:, 1-2 cups per day. ?Children: yes, Three. ?Marital status: . ?Occupation: Retired. ???Drug/Alcohol:?AUDIT-C (Standard)?Did you have a drink containing alcohol in the past year??Yes ?How often did you have a drink containing alcohol in the past year??Declined to specify (0 point) ?How many drinks did you have on a typical day when you were drinking in the past year??Declined to specify (0 point) ?How often did you have six or more drinks on one occasion in the past year??Declined to specify (0 point) ?Points?0 ?Interpretation?Negative * Medications:?TakingAcetamino phen Allopurinol Calcium Carbonate Metoprolol Succinate 25 MG Capsule ER 24 Hour Sprinkle 1 capsule Orally Once a day Tamsulosin HCl 0.4 MG Capsule 1 capsule Orally Once a day Medication List reviewed and reconciled with the patientTaking Acetaminophen Taking Allopurinol Taking Calcium Carbonate Taking Metoprolol Succinate 25 MG Capsule ER 24 Hour Sprinkle 1 capsule Orally Once a day Taking Tamsulosin HCl 0.4 MG Capsule 1 capsule Orally Once a day Medication List reviewed and reconciled with the patient * Allergies:?N.K.D.A.yes[Aller haydee Verified] Objective: * Vitals:?Ht:5ft 9 in, Wt:245, BMI:36.18, Shoe size:9.5-10, BP:169/93mm Hg, HR:70/min, Ht-cm: 175.26 cm, Wt-k.13 kg. * Examination: ???General Examination: ?GENERAL APPEARANCE:?Reveals a pleasant, alert, well-nourished, well- developed, well hydrated individual, who demonstrates proper attention to hygiene/body habitus, and is in no acute distress, Pt serves as own?historian for office visit today.?ORIENTED:?person, place, and time.?Neurological: ?SENSORY:?Neurological exam reveals intact sensorium, pain sensation normal, vibration sensation intact, pinprick sensation is normal in the lower extremities, Pt denies, anesthesia, burning, paresthesia, tingling, B/L.?TINEL'S COMPRESSION:? Negative, Lateral sural nerve distribution, Left.?DEEP TENDON REFLEXES:?Achilles, 2/4, B/L.?Vascular: ?DP PULSES (B):?3/4, B/L.?PT PULSES (B):?3/4, B/L.?CAPILLARY FILL TIME:?immediate, all digits, B/L.?TROPHIC CONDITION-TEXTURE/ELASTICITY/TURGOR/HAIR GROWTH (B):?normal, B/L.?TEMPERTURE GRADIENT (C):?warm to cool, proximal to distal, B/L.?PIGMENTATION:?normal, B/L.?EDEMA (C):?absent, B/L.?Dermatologic: ?SKIN FINDINGS:?Skin exam reveals normal texture, elasticity, and turgor. There are no masses. The interspaces are clear.?POROKERATOSIS:?Examination reveals a , painful, well encapsulated, hyperkeratotic lesion with loss of skin lines sub 5th MTH left.?Orthopedic: ?MUSCLE STRENGTH:?5/5 all groups in a symmetrical fashion , B/L.?TAILOR'S BUNION:?Prominent, painful, with?inflammation present,?5th MTH/MPJ, LEFT.?FOOTWEAR:?shoe gear properties exacerbate patients foot/toe deformity.? Assessment: * Assessment: 1.?Pain in left foot - M79.6 72???2.?Tailor's bunion of left foot - M21.622 (Primary)???Specify :Acute problem, Stable??? Plan: * Treatment: * Procedure Codes:? * Preventive Medicine:? ??Counseling:?Discussion:?-03: Office or other outpatient visit for the evaluation and management of a new patient, which required a medically appropriate history and/or examination and LOW level of DECISION MAKING for: 1 STABLE ACUTE UNCOMPLICATED PROBLEM, 2 OR MORE MINOR PROBLEMS, OR 1 STABLE CHRONIC PROBLEM, THAT POSE(S) A LOW RISK FOR MORBIDITY/MORTALITY. The visit on the day of the encounter encompassed interpreting the data and educating the patient as to the nature of their condition, treatment options available according to their individual PMH, meds, allergies, and overall health/living conditions, as well as any potential risks or complications that may occur from a failure to adhere to, and participate in, the recommended course of therapy. The discussion included a complete verbal, and/or written explanation of the examination results, any x-rays taken, the proposed diagnosis, and outline of the treatment plan. A schedule for future care needs was also explained. The patient verbalized an understanding of the instructions at this time and agreed to be an active participant in their treatment. If the patient should think of any questions or concerns after the visit, I have encouraged the patient to call the office.?Metatarsalgea:?I explained to the patient the possible etiologies of their Tailor bunion foot pain, including foot type/shoegear/activity level/exercise routine and the risks/benefits of all the different treatment options for pain including: No treatment at all, Rest, Ice, NSAIDs(only if well tolerated after meals), New/supportive Shoegear, Strappings and Tapings, Foot/Ankle AFO Bracing, Stretching exercises, Deep Tissue Massage, Arch support/shoe inserts, Custom orthoses, Topical analgesics including Aspercream/Voltaren gel, Physical Therapy, Cortisone injection therapy, EPAT/ESWT. Advantages and disadvantages of each option were discussed and the patients questions re: shoegear, custom vs prefabricated inserts, activity level, PO vs Topical medications (and their respective potential complications/drug interactions/side effects), and consistency in home treatment regimens for optimal success were answered to their verbally confirmed satisfaction.?Shoe Gear Counseling:?The patient and I reviewed the types of shoes they should be wearing. My recommendation included obtaining a well-fitted shoe with a good supportive, non-foldable nor twistable sole, plenty of toe/room for the forefoot, and proper arch support. Based on todays examination, I recommended the patient look for new shoes, by having their feet professionally measured. We discussed that generally the best time of the day for a shoe fitting is the afternoon. Different shoes types and brands to best match the patients occupation and vocation were discussed. Specific brand selection will be up to the patient, their individual foot condition/deformities, and fit. The patient and I reviewed the standard new shoe break in period by wearing them for a few hours a day while checking for redness or sores as wear time is increased. The patient verbally confirmed to understanding the information discussed.? ??Screening/Special Tests:?Fall Risk?Assessment:?Performed ?Screening:?No falls in the past year ?FALLS: Screening for Future Fall Risk?Have you had any falls with injury in the past year??No * Follow Up:?prn * Images: * Sign off status: Completed true * Provider:?Sancho Diez D.P.M. Date:?06/13 Generated for Racquel weber/Mick/Chenitting on:?08/11/2024 01:30 PM EST History and Physical Notes * HPI (History of Present Illness) Category Sub-Category Detail Notes Category Not es Foot Pain Location: Sub 5th MTH left Duration: several months Onset: unknown, denies trahugo mccormick Course: worse Aggravated: any pressure, standi ng, walking Treatments: rest/alter normal da herb activity Severity/Quality: moderate Misc: Examination Category Sub-Category Detail Notes Category Not es Neurological SENSORY: Neurological exa m reveals intact sensorium, pain sensation normal, vibration sensation intact, pinprick sensation is normal in the lower extremities, Pt denies, anesthesia, burning, paresthesia, tingling, B/L TINEL'S COMPRESSION: Negative, Lateral s ural nerve distribution, Left DEEP TENDON REFLEXES: Achilles, 2/4, B/L Dermatologic SKIN FINDINGS: Skin exam reveal s normal texture, elasticity, and turgor. There are no masses. The interspaces are clear POROKERATOSIS: Examination reveals a , painful, well encapsulated, hyperkeratotic lesion with loss of skin lines sub 5th MTH left Orthopedic FOOTWEAR: shoe gear proper ties exacerbate patients foot/toe deformity TAILOR'S BUNION: Prominent, painful, with inflammation present, 5th MTH/MPJ, LEFT MUSCLE STRENGTH: 5/5 all groups in a symmetrical fashion , B/L General Examination GENERAL APPEARANCE: Reveals a pleasant, alert, well- nourished, well-developed, well hydrated individual, who demonstrates proper attention to hygiene/body habitus, and is in no acute distress, Pt serves as own historian for office visit today ORIENTED: person, place, and t rylee Vascular DP PULSES (B): 3/4, B/L PT PULSES (B): 3/4, B/L CAPILLARY FILL TIME: immediate, all digi ts, B/L TEMPERTURE GRADIENT (C): warm to cool, p roximal to distal, B/L TROPHIC CONDITION-TEXTURE/ELASTICITY/TURGOR/HAIR GROWTH (B): normal, B/L EDEMA (C): absent, B/L PIGMENTATION: normal, B/L
--- OUTSIDE RECORDS SUMMARY | 2024-08-11 13:31 | XMS_ITS | Data Portability ---
Author Organization [place] [facility] Address [address] [place] [address] Assessment Encounter Date Assessment Date Assessment LastModified by Organization Details LastModified Time 08/06/2024 08/06/2024 Hearing Aid Fitting Details Date: Merchandise Presentation Associate & Model: Phonak Audeo L90 RL's Color: graphite zapata Ear couplin M 3 R & L Serial Numbers Right: [id number] Left: [id number] Warranty Expiration: 07-18-2026 Accessories: Cerustops Programs: [email or web address] [...] Sensorine ural hearing loss of bilateral ears [id number] Active 2017 Sensorine ural hearing loss, bilateral ; Note: Date Diagnosed : 8 11:05 AM (H90.3) Not Available [facility] 4 02:22:03 Sensorine ural hearing loss [id number] Active 2017 Sensorine ural hearing loss, unilatera l, left ear, with unrestric baron hearing on the contralat eral side; Note: Date Diagnosed : 03/18/2018 4:41 PM (H90.42) Not Available [facility] 4 02:21:58 Foreign body in right ear [id number] Active 2019 Foreign body in right ear, initial encounter ; Note: Date Diagnosed : 02/02/2020 3:24 PM (T16.1XXA ) Not Available [facility] 4 02:21:28 Problem Notes None recorded. Procedures Surgical History None recorded. Imaging Results Imaging Date Name Status LastModified by Organiz ation Details LastModified Time 08/07/2024 audiogram completed BARCODE Information no t available 08/07/2024 09:38:53 Procedure Notes None recorded. Medical Equipment None Reported. 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 He was wanting aids a little louder but was bothered by sudden loud sounds. Made changes; he will call if not OK Jazzy Bowser MA [facility] Health Concerns Section Related Observation LastModified by Organization Detai ls LastModified Time None Recorded Concern Status LastModified by Organization Details LastModified Time None Recorded Advance Directives Directive None Recorded Payers Encounter Date Sequence Insurance Name Policy Number Policy Myers Covered Member ID Myers Member ID Guarantor Name 08/06/2024 1 [facility] [id number] Shawn Miller [id number] Shawn Miller
== END 2024-08-11 11:47 | disposition home or self-care (01) ==
PROVIDERS: PCP Internal Medicine; Visit Provider Physician Assistant
DX: M43.16 Spondylolisthesis, lumbar region (principal)
CPT/HCPCS: 99213

== ENCOUNTER → 2024-08-11 11:23 | Outpatient (BNVA) | payer OTHER, SELFPAY | PROVIDERS: PCP Internal Medicine; Visit Provider Physician Assistant ==

== ENCOUNTER 2024-08-27 09:25 | Outpatient (RCR) | payer OTHER, SELFPAY ==
--- NOTE | 2024-07-01 14:01 | MHC.PT.EP ---
[facility] [place] Office [place] Office [place] Office [address] Devin Rich [address] [phone] F: [phone] F: [phone] F: [phone] F: [phone] Physical Therapy Plan of Care Date of Evaluation: 07/01/24 Date of Surgery: 04/15/2024 Diagnosis: SPONDYLOLISTHESIS, LUMBAR REGION; S/P L4-5 L4-5 oblique lumbar interbody fusion (OLIF) APR 2024-> EVAL AND TREAT -> SLOWLY REINTRODUCE TO ROM/INCR ACTIVITIES Assessment: 63 YO MALE REF TO PT W H/O SPONDYLOLISTHESIS, LUMBAR REGION; S/P L4-5 L4-5 oblique lumbar interbody fusion (OLIF) APR 2024 AND IS REF TO PT FOR SX MGMT WELL REINTRODUCING ROM AND GRADUAL INCR ACTIVITIES. 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 OBJECTIVELY, NYA HAS LIMITED TRUNK/ HIP AROM, (+) LUMBOPELVIC ASYMM, DECR CORE ENGAGEMENT/ STABILITY, (+) TISSUE TENSION, AND ALTERED BODY MECH. HE NOTES Lt HS SPASMS AND Lt GLUTE PAIN LIMITNG HIS FUNCTIONAL MOBILITY. HE HAS A H/O SEEMA TKA. HE IS VERY MOTIVATED FOR PT AND IS A GOOD CANDIDATE TO ADDRESS THE ABOVE FINDINGS Frequency and Duration: The patient will be seen 2 x WK x 5 WKS Short Term Goals: INITIATE HEP-> ADDRESS HS FLEXIB; GRADUAL INCREASE IN ROM EDUC Pt RE CORE ENGAGEMENT AND CARRYOVER INTO ADLs/ HEP IMPROVE POSTURAL / BODY MECH AWARENESS TO REDUCE LS SRESS DECR FREQ OF Lt HS/ GLUTE SPASMS Line Up Worker Goals: THE Pt GRAD RESUME REG ADLs , FITNESS EVIDENT W IMPROVED OSWESTRY (AT EVAL ) INDEP W HEP AND SELF-SX MGMT TECHN Treatment Plan: Modalities to reduce pain, spasms and effusion. Manual therapy to restore motion and function. Therapeutic exercise to improve strength and flexibility. Neuromuscular re-education for posture and balance. Therapeutic activities to return to functional activities of daily living. Electronically signed by: JL ANGELA,PT Please sign and return to therapist. Thank you for your referral.
--- NOTE | 2024-08-27 11:46 | MHC.PT.DC ---
[facility] [place] [facility] [place] [facility] [place] [facility] [address] Devin Rich [address] [phone] F: [phone] F: [phone] F: [phone] F: [phone] Physical Therapy Discharge Report Diagnosis: SPONDYLOLISTHESIS, LUMBAR REGION; S/P L4-5 L4-5 oblique lumbar interbody fusion (OLIF) APR 2024-> EVAL AND TREAT -> SLOWLY REINTRODUCE TO ROM/INCR ACTIVITIES Date of Surgery: 04/15/2024 Date of Evaluation: 07/01/24 Date of Discharge: 08/27/24 Treatments to Date: 15 Cancellations to Date: 0 No Shows to Date: 0 Discharge Status: Improved Function Independent with HEP Discharge Summary: [facility] HAS PROGRESSED VERY WELL IN PT- HE HAS MET HIS PT GOALS, ULTIMATELY, RETURNING TO REG ADLs, GYM WORKOUTS, AND A SLOW RE-ENTRY TO [facility]. HE IS MOTIVATED AND COMPLIANT W HEP. HIS OSWESTRY SCORE AT D/C IS 12/50, AND, AT EVAL, IT WAS 22/50. HE DENIED PAIN , BUT NOTES TIGHTNESS WHEN SEATED ON A HIGH CHAIR OR EARLY IN AM- WHICH, WE HAVE ADDRESED IN PT AND W HEP. HE IS D/C THIS DATE FROM PT, HAVING MET HIS PT GOALS. Electronically signed by: JL MILLER,PT Please sign and return to therapist. Thank you for your referral.
== END 2024-08-27 11:49 | disposition home or self-care (01) ==
LOC: HO.PT 09:25
PROVIDERS: PCP Internal Medicine; Visit Provider Physician Assistant
DX: M43.16 Spondylolisthesis, lumbar region (principal)
CPT/HCPCS: 97110; 97112; 97140; 97162; 97530

== ENCOUNTER 2025-02-16 13:21 | Outpatient (AMB) | payer MEDICARE, SELFPAY ==
--- NOTE | 2025-02-16 13:32 | HO.SPINEOV ---
Intake Visit Reasons: R leg pain & numbness Intake Note: Mr. Miller is here today c/o Right leg pain and Numbness. Aluminizer Required: No Allergies No Known Allergies Allergy (Verified 02/16/25 13:32) Assessment & Plan Assessment & Plan (1) Right hip pain: Code(s): M25.551 - Pain in right hip Category: Medical (2) Spondylolisthesis, lumbar region: Code(s): M43.16 - Spondylolisthesis, lumbar region Category: Medical Plan Mr Miller is here in follow-up. He underwent L4-5 oblique lumbar interbody fusion almost 1 year ago, and has been doing well. He was discharged to follow-up. Unfortunately sometime around October he began experiencing pain in his outer right buttock radiating into his anterior groin. He does not recall any specific event that started it off. It is aggravated specifically when he is bending or flexing at the waist. He does not report any back pain. If he tries to get into a car or do something like tying shoes he gets an intense pain into his anterior groin that makes it very uncomfortable trying to stand back up straight. The pain can be quite intense. Sometimes they will be a dysesthesia like pain running down his anterior thigh. He describes it as feeling like water is running down her his anterior thigh. He went to [facility] and was evaluated there. They did hip x-rays which were normal. They sent him through an extensive physical therapy plan for which he has been doing now for about 3 months. This include stretches and strengthening exercises. It only seems to be aggravating things. He also underwent a hip injection in what sounds like the trochanteric bursa piriformis area and that seemed to aggravate it. He has been on anti-inflammatories and Tylenol etc.. He is very frustrated because he was doing so well after his back surgery and he is not sure what is going on. Because he gets occasional tingling in his toes he was recommended to follow-up with his spine team, and that is why he is here to see us today. Again he does not report any back pain and he has been very happy with his fusion surgery. On exam, he is very uncomfortable just putting weight on his right buttock to sit up on the examining table. He grimaces while he does this. Any attempts at manipulation of his hip in the form of hip flexion, internal and external rotation, he grimaces. I tried to have him do simple abduction and adduction muscle resistance examination but it was too painful to continue. Quadriceps strength is normal, as is the rest of his distal lower extremity on the right. He has total knee replacement but I was able to get a patellar reflex in the upper tendon over the quadriceps. His gait is a bit antalgic. Impression: 64-year-old male with a history of an L4-5 oblique lumbar interbody fusion almost a year ago presents with right hip pain into his anterior groin going down his anterior thigh. His hip x-rays were negative and he has been undergoing hip physical therapy now for few months without any relief. He has tried [id number] medications etc.. He does have a component of tingling in his toes and a dysesthesia in his anterior thigh. He was sent today to follow up with us to see if there is any potential worrisome findings about his lumbar spine. Right now I have a low suspicion this is coming from his back but given the risk of possible disc herniation I will order a lumbar MRI to evaluate. Also, despite his hip x-rays being negative, all of his symptoms come with flexion of the hip and on physical examination he has tremendous pain generated with any attempts at movement. I will order a hip MRI as well to exclude something like a labral tear or other underlying pathology. Total amount of time spent in this visit was 20 minutes in discussion of symptoms, ordering imaging and subsequent plan of care Yoshi Soria MD,PhD [facility] Orders: Orders MR lumbar spine wo con Today M43.16 - Spondylolisthesis, lumbar region MR hip RT wo con Today M25.551 - Pain in right hip Coding Level of Care Code Est Pt Level 3 (27217) Diagnoses Right hip pain M25.551 Spondylolisthesis, lumbar region M43.16
--- OUTSIDE RECORDS SUMMARY | 2025-02-16 15:39 | XMS_ITS | Clinical Summary ---
Author Organization [address] [facility] Address [address] [place] [address] Phone Care Team Providers Care Custodial Services Manager Name Role Phone Donell Arredondo MD Primary Care Provider [phone] Surgical History Surgery Date Site/Laterality Comments KNEE SURGERY 2016 PROCEDURE: HISTORICAL KNEE SURGERY TOTAL KNEE ARTHROPLASTY PROCEDURE: HISTORICAL TOTAL KNEE REPLACE VASECTOMY PROCEDURE: HISTORICAL VASECTOMY KNEE SURGERY PROCEDURE:KNEE SURGERY JOINT REPLACEMENT PROCEDURE:JOINT REPLACEMENT Medical History Medical History Date Comments Asthma 10/30/2017 DX:Asthma Headache 10/30/2017 DX:Headache History of knee replacement 10/30/2017 DX:H istory of knee replacement Morbid obesity with BMI of 4 5.0-49.9, adult ([facility]/HCC V24, CMS/HCC V28) 10/30/2017 DX:Morbid obesity wit h BMI of 45.0-49.9, adult ([facility]) Obstructive sleep apnea syndrome 05/08/2017 DX:Obstructive sleep [...] ars (1 of 2 - PCV) 12/23/1978 Zoster Vaccines (1 of 2) 12/23/2009 RSV Immunization Adult Patie nts (1 - Risk 60-74 years 1-dose series) 2019 Abdominal Aortic Aneurysm (A AA) Screen 05/20/2022 Cholesterol Screening (Lipid Panel) 05/20/2022 Colorectal Cancer Screening: Colonoscopy 05/20/2022 Hepatitis C Screening 05/20/2022 Social Influencers of Health Screening 05/20/2022 Depression Screening 06/11/2024 Falls Risk Assessment 12/23/2024 COVID-19 Vaccine (1 - 2023-2 5 season) 2025 Influenza Vaccine (#1) 2025 03/23/2021 MMR Vaccines Aged Out 09/10/2018 No [...] age to complete this topic Meningococcal B Vaccine Aged Out No l onger eligible based on patient's age to complete this topic RSV Immunization Patients Un manisha 20 months Aged Out No longer eligible b ased on patient's age to complete this topic Varicella Vaccines Aged Out No longer eligible based on patient's age to complete this topic [place] [id number] Care Teams Custodial Services Manager Relationship Specialty Start Date End Date Donell Arredondo MD [address] [place] [address] PCP - General Internal Medicine 05/23/16
--- OUTSIDE RECORDS SUMMARY | 2025-02-16 15:39 | XMS_ITS | Clinical Summary ---
Author Organization [facility] Address [address] [place] [address] Care Team Providers Care Loading Unit Tool Setter Name Role Phone Donell Arredondo MD Primary Care Provider [phone] Allergies No known active allergies Medications Medication [...] 12/23/2004 Shingrix-Zoster Vaccine (1 of 2) 12/23/2009 Fall Risk Assessment 12/23/2024 Pneumococcal Vaccine (1 of 1 - PCV) 12/23/2024 Influenza Vaccine (#1) 2025 03/23/2021 RSV Adult > 60+ Yrs or Pregn [...] age to complete this topic Care Teams Loading Unit Tool Setter Relationship Specialty Start Date End Date Donell Arredondo MD [address] [place] [address] PCP - General Filing And Polishing Supervisor 01/05/17
== END 2025-02-16 14:48 | disposition home or self-care (01) ==
LOC: HO.HNS 13:21
PROVIDERS: PCP Internal Medicine; Visit Provider Physician Assistant
DX: M25.551 Pain in right hip (principal); M43.16 Spondylolisthesis, lumbar region
CPT/HCPCS: 99213

== ENCOUNTER → 2025-02-16 13:21 | Outpatient (BNVA) | payer MEDICARE, SELFPAY | PROVIDERS: PCP Internal Medicine; Visit Provider Physician Assistant | DX: M25.551 Pain in right hip (principal); M43.16 Spondylolisthesis, lumbar region; R26.89 Other abnormalities of gait and mobility | CPT/HCPCS: 99212 ==

== ENCOUNTER → 2025-03-16 17:52 | Outpatient (BNV) | payer MEDICARE, SELFPAY | PROVIDERS: PCP Internal Medicine; Visit Provider Radiology Diagnostic Radiology | DX: M43.16 Spondylolisthesis, lumbar region (principal); M25.551 Pain in right hip | CPT/HCPCS: 72148; 73721 ==

== ENCOUNTER 2025-03-16 17:54 | Outpatient (REF) | payer MEDICARE, SELFPAY ==
--- NOTE | ~2025-03-16 | MR_ITS ---
CLINICAL HISTORY: M25.551 - Pain in right hip MR right hip without gadolinium Comparison: None provided Findings: No fractures. No pathologic bone lesions. No femoral neck bony protuberances. Normal acetabular version. No effusion. No acetabular labral tears. Musculotendinous structures are intact. IMPRESSION: 1. No acute findings. This document has been electronically signed by: Ronal Sam MD on 03/17/2025 20:28:31
--- NOTE | ~2025-03-16 | MR_ITS ---
CLINICAL HISTORY: M43.16 - Spondylolisthesis, lumbar region --- Additional Notes or Special Instructions: Right leg pain, status post L4-5 oblique lumbar interbody fusion MR lumbar spine without gadolinium Comparison: DX/SR - XR LUMBAR SPINE 4 OR MORE VIEWS - 06/16/24 13:24 EST Findings: Postsurgical changes related to L4-L5 posterior spinal fusion. Vertebral body heights and lumbar lordosis are well-maintained. No acute fracture or pathologic bone lesion. Moderate multilevel spondylosis with degenerative disc desiccation, disc height loss, ligamentum flavum thickening and facet arthropathy. At L1-L2, no significant spinal canal or neural foraminal narrowing. At L2-L3, no significant spinal canal or neural foraminal narrowing. At L3-L4, small circumferential disc bulge, ligamentum flavum thickening, facet arthropathy as well as a right facet synovial cysts measuring 8 mm causing severe spinal canal narrowing and compression of the cauda equina nerve roots. Moderate bilateral neural foraminal narrowing at this level causing abutment of the exiting bilateral L4 nerve roots. At L4-L5, no significant spinal canal or neural foraminal narrowing. At L5-S1, no significant spinal canal narrowing. Moderate bilateral neural foraminal narrowing. Paraspinous musculature intact. IMPRESSION: Moderate multilevel spondylosis, most notably at L3-L4 along with a right facet 8 mm synovial cyst causing severe spinal canal narrowing and compression of the cauda equina nerve roots. Additional less severe multilevel spinal canal and neural foraminal narrowings as detailed in the findings. This document has been electronically signed by: Bunny Welch MD on 03/17/2025 22:24:22
--- OUTSIDE RECORDS SUMMARY | 2025-03-16 18:40 | XMS_ITS | Clinical Summary ---
Author Organization [facility] Address [address] [place] [address] Care Team Providers Care Lockstitch Zipper Setter Name Role Phone Donell Arredondo MD Primary Care Provider Allergies No known active allergies Medications Medication [...] age to complete this topic Care Teams Lockstitch Zipper Setter Relationship Specialty Start Date End Date Donell Arredondo MD [address] [place] [address] PCP - General General Utility Maintenance Repairer 01/05/17
--- OUTSIDE RECORDS SUMMARY | 2025-03-16 18:40 | XMS_ITS | Clinical Summary ---
Author Organization [facility] Address [address] [place] [address] Phone Care Team Providers Care Laboratory Animal Caretaker Name Role Phone Donell Arredondo MD Primary Care Provider [phone] Surgical History Surgery Date Site/Laterality Comments KNEE SURGERY 2016 PROCEDURE: HISTORICAL KNEE SURGERY TOTAL KNEE ARTHROPLASTY PROCEDURE: HISTORICAL TOTAL KNEE REPLACE VASECTOMY PROCEDURE: HISTORICAL VASECTOMY KNEE SURGERY PROCEDURE:KNEE SURGERY JOINT REPLACEMENT PROCEDURE:JOINT REPLACEMENT Medical History Medical History Date Comments Asthma 10/30/2017 DX:Asthma Headache 10/30/2017 DX:Headache History of knee replacement 10/30/2017 DX:H istory of knee replacement Morbid obesity with BMI of 4 5.0-49.9, adult ([facility] V24, [facility] V28) 10/30/2017 DX:Morbid obesity wit h BMI of 45.0-49.9, adult ([facility]) Obstructive sleep apnea syndrome 05/08/2017 [...] 09/19/2021 2:20 PM EDT Plan of Treatment Upcoming Encounters Date Type Department Care Team ([facility] st Contact Info) Description 03/30/2025 9:00 AM EDT Consult Pulmonology - [place] [address] [facility] [address] [place] [id number] Juany Esposito MD [address] [facility] [address] [place] [address] Health Maintenance Due Date Last Done Comments Colorectal Cancer Screening: Colonoscopy 1959 DTaP,Tdap,and Td Vaccines (1 - Tdap) 12/23/1978 Pneumococcal Vaccine: 50+ Ye ars (1 of 2 - PCV) 12/23/1978 Zoster Vaccines (1 of 2) 12/23/2009 RSV Immunization Adult Patie nts (1 - Risk 60-74 years 1-dose series) 2019 Abdominal Aortic Aneurysm (A AA) Screen 05/20/2022 Cholesterol Screening (Lipid Panel) 05/20/2022 Hepatitis C Screening 05/20/2022 Medicare Annual Wellness Visit 05/20/2022 Social Influencers of Health Screening 05/20/2022 [...] patient's age to complete this topic Insurance [employer] - [place] MEDICARE ADVANTAGE Care Teams Laboratory Animal Caretaker Relationship Specialty Start Date End Date Donell Arredondo MD [address] [place] [id number] PCP - General Internal Medicine 05/23/16
== END 2025-03-16 17:55 | disposition home or self-care (01) ==
LOC: HO.MRI 17:54
PROVIDERS: PCP Internal Medicine; Visit Provider Physician Assistant
DX: M43.16 Spondylolisthesis, lumbar region (principal); M25.551 Pain in right hip
CPT/HCPCS: 72148; 73721

== ENCOUNTER 2025-05-21 09:56 | Day surgery (SDC) | payer MEDICARE, SELFPAY ==
[2025-05-12 11:43] VITALS: BMI 36.2
--- NOTE | 2025-05-12 12:26 | HO.ANESPROP2 ---
Documented by User: Irma Cartagena NP 05/12/25 12:40 HPI - Anesthesia Eval Consult details Narrative: 64yo M for Right L3-4 Synovial Cyst Resection, 05/21/25 Follows [facility] for PVCs. Last office visit started metoprolol 50mg Follows [facility] for TIMOTEO with CPAP daily, asthma. Stable at 03/2025 office visit for 1 year routine f/u [facility] Active Problems Active Problems: All Active Problems Right hip pain (Acute) Spondylolisthesis, lumbar region (Acute) Past Medical History Medical History Low back pain Abrasion of left upper arm Hematoma of right knee region History of recent fall (~03/10/24) Gout Hx of seasonal allergies THREE [employer] (hard of hearing) TIMOTEO on CPAP PVC (premature ventricular contraction) GERD (gastroesophageal reflux disease) Family History Family history of problems with anesthesia: No Surgical History Surgical History Hx of spinal surgery (04/15/24) Hx of colonoscopy (~2019) Hx of arthroscopy of shoulder (~2013) Hx of appendectomy History of bilateral knee arthroplasty (~2016) History of Problems with Anesthesia: No Social History Social History Household Members: Spouse Housing: House Are you a primary career development coordinator/teacher to a significant other at home: No Do you presently have visiting nurse or other home services: No Comment: aware of trip hazards Patient Tobacco Use Status: Never used Tobacco Use of substances other than those prescribed or required for medical reasons: No Have you been hit, kicked, punched, or otherwise hurt by someone within the past year? If so, by whom?: No Are you DNR?: No Advance Directives: No Advance Directives Information Provided: Yes Advance Directives on File: No service: No Meds Allergies Allergy/AdvReac Type Severity Reaction Status Date / Time No Known Allergies Allergy Verified 02/16/25 13:32 Home Medications ?Medication ?Instructions ?Recorded ?Confirmed ?Last Taken ?Type acetaminophen 500 mg tablet 1,000 mg PO QID PRN Pain 03/12/24 05/12/25 04/14/24 History allopurinol 100 mg tablet 100 mg PO DAILY 03/12/24 05/12/25 04/15/24 History allopurinol 300 mg tablet 300 mg PO DAILY 03/12/24 05/12/25 04/15/24 History calcium carbonate (Tums) 2 mg PO BID PRN Gastric Reflux 03/12/24 05/12/25 04/13/24 History tamsulosin 0.4 mg capsule 0.4 mg PO DAILY 03/12/24 05/12/25 04/14/24 History metoprolol succinate 50 mg 50 mg PO DAILY 05/12/25 05/12/25 Unknown History tablet,extended release 24 hr omeprazole 20 mg capsule,delayed 20 mg PO DAILY 05/12/25 05/12/25 Unknown History release Exam Height,Weight and Vital Signs: Height 5 ft 9 in Weight 111.13 kg Narrative Narrative: MCT Loop 02/2025 11 days SR 48-112bpm <0.1% afib/flutter PACs, PVCs, 3 runs of SVT (fastest 142 bmp, longest 7 bpm) ECHO 11/2024 LVEF 55-60% No signif valve disease Assessment and Plan Assessment Anesthesia Assessment: Chart Reviewed Final Anesthetic Review Family History of Problems with Anesthesia: No History of Problems with Anesthesia: No Documented by User: Inez Lynch MD 05/21/25 09:18 [facility] Past Medical History Medical History Low back pain Abrasion of left upper arm Hematoma of right knee region History of recent fall (~03/10/24) Gout Hx of seasonal allergies THREE [employer] (hard of hearing) TIMOTEO on CPAP PVC (premature ventricular contraction) GERD (gastroesophageal reflux disease) Surgical History Surgical History Hx of spinal surgery (04/15/24) Hx of colonoscopy (~2019) Hx of arthroscopy of shoulder (~2013) Hx of appendectomy History of bilateral knee arthroplasty (~2016) Social History Social History Household Members: Spouse Housing: House Are you a primary career development coordinator/teacher to a significant other at home: No Do you presently have visiting nurse or other home services: No Comment: aware of trip hazards Patient Tobacco Use Status: Never used Tobacco Use of substances other than those prescribed or required for medical reasons: No Have you been hit, kicked, punched, or otherwise hurt by someone within the past year? If so, by whom?: No Are you DNR?: No Advance Directives: No Advance Directives Information Provided: Yes Advance Directives on File: No service: No Meds Allergies Allergy/AdvReac Type Severity Reaction Status Date / Time No Known Allergies Allergy Verified 02/16/25 13:32 Home Medications ?Medication ?Instructions ?Recorded ?Confirmed ?Last Taken ?Type acetaminophen 500 mg tablet 1,000 mg PO QID PRN Pain 03/12/24 05/12/25 04/14/24 History allopurinol 100 mg tablet 100 mg PO DAILY 03/12/24 05/12/25 04/15/24 History allopurinol 300 mg tablet 300 mg PO DAILY 03/12/24 05/12/25 04/15/24 History calcium carbonate (Tums) 2 mg PO BID PRN Gastric Reflux 03/12/24 05/12/25 04/13/24 History tamsulosin 0.4 mg capsule 0.4 mg PO DAILY 03/12/24 05/12/25 04/14/24 History metoprolol succinate 50 mg 50 mg PO DAILY 05/12/25 05/12/25 Unknown History tablet,extended release 24 hr omeprazole 20 mg capsule,delayed 20 mg PO DAILY 05/12/25 05/12/25 Unknown History release Exam Airway Mallampati Class: II TM Dist: >3cm Neck ROM: Full Heart: rrr Lungs: cta Assessment and Plan Assessment Anesthesia Assessment: Anesthesia Plan Discussed Final Anesthetic Review NPO: Yes ASA Class: II Final Preanesthetic Review: No Changes in Pt Med Stat, Meds/Allgs Chart Reviewed, Consent Obtained/Reviewed and Anes Risks/Benef Reviewed Patient Risk: Intermediate Procedure Risk: Intermediate Anesthetic Plan Anesthetic Plan: GA and Agree w/ Assess. and Plan Disposition: Standard PACU
[2025-05-21] VITALS (8 sets, daily range): BP systolic 130–162; BP diastolic 77–95; PULSE 60–76; RESP 12–23; TEMP 36.2–36.6; O2SAT 95–98; BMI 38.2
--- NOTE | ~2025-05-21 | FL_ITS ---
EXAMINATION: FL GUIDANCE ONLY HISTORY: RIGHT L3-4 CYST RESECTION COMPARISON: Correlation is made with plain films of the lumbar spine dated 06/16/2024. TECHNIQUE: Fluoroscopy time: 2.7 seconds. Cumulative Dose: 2.0254 mGy. DAP: 0.7607 Gycm2 Images: 1. FINDINGS: A single fluoroscopic spot film of the lumbar spine in the lateral projection demonstrates a probe at the L3-4 level. FL/FL guidance in OR IMPRESSION: Fluoroscopy during procedure. Please see procedure report for additional information. Electronically signed by: Sean Navas MD 05/21/2025 11:49 AM FELICIANO
--- NOTE | 2025-05-21 09:00 | MHC.SHP ---
Pre-Procedural Eval Section A - 24 Hr Update-Section A only Date of Service: 05/21/25 The patient is an INPATIENT: No Section B - Complete if H&P > 30 days Chief Complaint: Spondylolisthesis, lumbar region,hip pain Details of Present Illness: Right lumbar radiculopathy Allergies: Allergies Allergy/AdvReac Type Severity Reaction Status Date / Time No Known Allergies Allergy Verified 02/16/25 13:32 Review of Systems Sugical H&P ROS: Negative: Constitution, Cardiovascular, Respiratory, Neurological, Psychiatric, Hem-Onc, Allergic/Immunologic, Gastrointestinal, Genitourinary, Musculoskeletal, Integumentary, Endocrine and Eyes/Ears/Nose/Throat Exam Surgical H&P Exam: Normal: HEENT, Normal: Heart, Normal: Lungs, Normal: Extremities, Normal: Abdomen, Normal: Skin and Normal: Neurological (Awake, alert) Plan I have reviewed the history and physical and performed a pertinent physical examination on my patient. No changes have occurred unless specified. Right L3-4 laminotomy with resection of synovial cyst Time Spent With Patient Time: Total time managing care of this patient today _5___ minutes.
--- NOTE | 2025-05-21 10:47 | PM.DS ---
DS: Providers Provider Date of Service: 05/21/25 Date of discharge: 05/21/25 Primary care physician: Donell Arredondo MD Admitting clinician: Jere Soria DS: Diagnosis Discharge Diagnosis (1) Synovial cyst of lumbar spine: Status: Acute DS: Summary Time Attestation Discharge Coordination Time (in mins): 5 Quality: Safe Use of Opioids Does Pt have an Active Cancer Diagnosis on the Problem List?: No Quality: Stroke Does the patient have a stroke diagnosis?: No Physical Exam Vital Signs: Vital Signs: Last Vital Signs Temp 97.2 F 05/21/25 10:37 Pulse 71 05/21/25 10:37 Resp 18 05/21/25 10:37 BP 162/95 H 05/21/25 10:37 Pulse Ox 97 05/21/25 10:37 O2 Del Method Room Air 05/21/25 10:37 BMI result Body Mass Index 38.2 DS: Data Data Completed and Pending Completed studies during hospitalization [Text1]: Procedures Assistance with Respiratory Ventilation, Less than 24 Consecutive Hours, Continuous Positive Airway Pressure (04/15/24) Excision of Lumbar Vertebral Disc, Open Approach (04/15/24) Fusion of Lumbar Vertebral Joint with Interbody Fusion Device, Anterior Approach, Anterior Column, Open Approach (04/15/24) Insertion of Interspinous Process Spinal Stabilization Device into Lumbar Vertebral Joint, Open Approach (04/15/24) Discharge Plan Discharge Patient Disposition: Home, Self-Care Referrals: Donell Arredondo MD [Primary Care Provider, Internal Medicine] - 1 Week Discharge Medications: New docusate sodium [Colace] 100 mg capsule 100 mg PO BID Qty: 20 0RF oxycodone 5 mg tablet 5 mg PO Q4H PRN (Reason: pain) Qty: 20 0RF Rx Instructions: Partial Fill upon patient request. Continued docusate sodium 100 mg capsule 100 mg PO BID Qty: 30 0RF allopurinol 100 mg tablet 100 mg PO DAILY tamsulosin 0.4 mg capsule 0.4 mg PO DAILY allopurinol 300 mg tablet 300 mg PO DAILY acetaminophen 500 mg Tablet 1,000 mg PO QID PRN (Reason: Pain) calcium carbonate [Tums] 200 mg calcium (500 mg) Tablet,Chewable 2 mg PO BID PRN (Reason: Gastric Reflux) oxycodone 5 mg tablet See Rx Instructions .ROUTE .COMPLEX PRN (Reason: severe pain (scale score 7-10)) Qty: 30 0RF Rx Instructions: Take 1-2 tablets by mouth every 4 hours metoprolol succinate 50 mg tablet extended release 24 hr 50 mg PO DAILY omeprazole 20 mg capsule,delayed release(DR/EC) 20 mg PO DAILY Discharge Orders: Discharge Order (Routine); Ordered 05/21/25 Ordered By: Yoshi Nur Diet: Advance to usual diet Activity on Discharge: As tolerated Activity Restrictions/Additional Instructions: After your spinal surgery we ask you to observe the following restrictions/guidelines: Activity: It is normal to feel some discomfort as you increase your activity, but that will improve with time. We ask you avoid heavy lifting or acitivities that cause pain. As a general rule, 8lbs is a safe limit for lifting right after surgery. Walk as much as you feel comfortable but not to exhaustion. You will feel extra tired the first few days after surgery. Stay well hydrated. It is OK to walk up and down stairs You may return to driving when you are off narcotics (such as vicodin, oxycodone, dilaudid, etc), and you are back to normal functional capacity. If you have any concerns please check with office before driving. Return to work is specific to each patient and each surgery, so please speak with your doctor/PA at first follow up. Please bring paperwork such as FMLA at that time if you need it filled out. Medications: For optimum pain control, it is best to start with a combination of 500 mg of Tylenol every 4 hours with 600 mg of Motrin every 8 hours, and use narcotics as needed in between for breakthrough pain. We will give you a short supply of narcotics after surgery (usually one weeks worth). If you need more please call the office but do not use more than prescribed. You will need to give our office 48 hours notice if you need narcotics refilled and we do not fill narcotics on weekends or evenings. If you are on a narcotic, it is a good idea to take a stool softener such as colace or senna to avoid constipation If you take blood thinner such as aspirin, Plavix, Coumadin, Effient, Eliquis etc for conditions such as Afib, DVT, Pulmonary embolus, coronary disease, stents etc please speak with your surgeon about specific details as to when you can resume these medications. Follow up: Please call the office, , after surgery to arrange a 3 week follow up for wound check. Wound Care: You may remove your dressing on the first day after surgery. ?You may ?leave open to air. Please do not remove the steri strips underneath. they will fall off on their own in one week. IT IS NORMAL FOR THE WOUND TO OOZE OR BE BLOODY FOR A FEW DAYS AFTER SURGERY. ?IF THIS HAPPENS JUST PLACE NEW DRESSING OVER IT TO AVOID STAINING CLOTHES. You may shower on post op day # 1 We ask that you do not let the water soak the wound. If it does get wet, just towel dry lightly. Please do not scrub your incision or place any type of chemical/ointment on the wound. No tub baths, pools or jacuzzis for one month. If you have any leaking or redness from your wound, or fevers, please call office Print Language: [place]
--- NOTE | 2025-05-21 11:59 | W.PM.OPN ---
Operative Note Operative Note Date of Service: 05/21/25 Narrative: Preoperative Diagnosis: Extradural benign mass (synovial cyst) compressing the right L4 nerve root Operation: L3-4 Laminotomy for removal of extradural benign mass with use of microscope Consent Informed Consent was obtained for this operation. I have explained the nature, purpose and benefits of the operation. I have discussed the risks and benefit of the operation including possible complications or adverse events with patient/family. Alternative(s) were discussed with the patient with their relative benefits and risks as well as the consequences of not accepting the operation were included in obtaining consent. Surgeon: DIAMOND LOJA MD, PHD Procedure Assisted By: Yoshi mayen Description of Procedure This 64-year-old male is suffering from a right L4 lumbar radiculopathy due to a extradural benign mass compressing the L4 nerve root. The patient had a previous L4-5 fusion done. The patient was offered a removal of the mass to decompress the nervous structure. He is aware that he may need additional fusion surgery if the mass returns. The procedure complications were explained. The patient was consented. The patient was brought to the operating room and endotracheally intubated. The patient was turned in prone position on the Ish frame. Prep and drape was done followed by timeout. Physician asset protection assistant provided access. A mid lumbar incision was made followed by release of the paravertebral muscle on the right side to expose the L3-4 lamina and facet joint. An intraoperative x-ray was obtained to confirm the correct level. The microscope was brought in. I took over the procedure. The high-speed drill was used to do a L4-5 laminotomy. The flavum ligament was opened to expose the underlying thecal sac and start of the L4 nerve root. A large cystic mass was identified and dissected from the L4 nerve root. The cyst opened during the dissection. When the mass was completely relieved from the L4 nerve root I removed it piecemeal. Most likely we were dealing with a synovial cyst. A long the nerve root could be easily passed lateral from the L4 nerve root, a sign of adequate decompression of the nerve root . The microscope was removed. Hemostasis was done. Incision was closed in 2 layers. Steri-Strips were used to approximate incision. An OpSite with Tegaderm was used to cover the incision. All sponge needle counts were correct. Patient was extubated and transported in stable is to recovery room. Anesthesia: General Estimated Blood Loss (ml): Minimal Duration of Surgery: Under 60 Minutes Postoperative Plan: Discharge to home
== END 2025-05-21 14:20 | disposition home or self-care (01) ==
PROVIDERS: PCP Internal Medicine; Visit Provider Neurological Surgery
PROC: (CPT 63267; principal; 2025-05-21 11:30)
DX: M71.38 Other bursal cyst, other site (principal); M54.16 Radiculopathy, lumbar region; M43.16 Spondylolisthesis, lumbar region; M25.551 Pain in right hip; M79.604 Pain in right leg; R20.0 Anesthesia of skin; Z91.81 History of falling; I49.3 Ventricular premature depolarization; G47.33 Obstructive sleep apnea (adult) (pediatric); M10.9 Gout, unspecified; Z99.89 Dependence on other enabling machines and devices; Z79.899 Other long term (current) drug therapy; Z98.1 Arthrodesis status; Z98.890 Other specified postprocedural states
CPT/HCPCS: 63267; J0131; J0690; J1100; J1885; J2003; J2250; J2405; J2704; J3010

== ENCOUNTER → 2025-05-21 09:56 | Outpatient (BNV) | payer MEDICARE, SELFPAY | PROVIDERS: PCP Internal Medicine; Visit Provider Neurological Surgery | DX: M71.38 Other bursal cyst, other site (principal) | CPT/HCPCS: 63267; 69990; 99499 ==

== ENCOUNTER 2025-06-09 08:48 | Outpatient (AMB) | payer MEDICARE, SELFPAY ==
--- NOTE | 2025-06-09 08:54 | HO.SPINEOV ---
Intake Visit Reasons: 1st post op Intake Note: Mr. Miller is here today for his 1st post op. Dental Equipment Technician Required: No Allergies No Known Allergies Allergy (Verified 06/09/25 08:55) Assessment & Plan Assessment & Plan (1) Synovial cyst of lumbar spine: Code(s): M71.38 - Other bursal cyst, other site Category: Medical Plan Mr Miller is resection of synovial cyst L3-4. He is doing well. His symptoms in his right leg are gone. His wound is healed up beautifully. He is walking normally. We discussed activity guidelines, restrictions and expectations after lumbar synovial cyst resection. I would like to see him back in 6 weeks for a final postoperative check. Yoshi Soria MD, PhD [facility] Coding Level of Care Code Global (66506) Diagnoses Synovial cyst of lumbar spine M71.38
--- OUTSIDE RECORDS SUMMARY | 2025-06-09 10:49 | XMS_ITS | Clinical Summary ---
Author Organization [facility] Address [address] [place] [address] Phone Care Team Providers Care Milk Sampler Name Role Phone Donell Arredondo MD Primary Care Provider [phone] Allergies No known active allergies Medications acetaminophen (TYLENOL) 500 mg tablet Take 2 tablets (1,000 mg total) by mouth. 7 Active allopurinoL (ZYLOPRIM) 100 mg tablet TAKE 1 TABLET BY MOUTH EVERY DAY WITH 300MG ALLOPURINOL. (TOTAL DAILY DOSE 400MG) 7 Active metoprolol succinate (TOPROL-XL) 25 mg 24 hr tablet Take 1 tablet (25 mg total) by mouth 1 (one) time each day. Do not crush or chew. Active tamsulosin (FLOMAX) 0.4 mg 24 hr capsule Take 1 capsule (0.4 mg total) by mouth 1 (one) time each day with breakfast. Capsules should be taken 30 minutes following the same meal each day. Active omeprazole (PriLOSEC) [address] capsule Take 1 capsule (20 mg total) by mouth 1 (one) time each day. Do not crush or chew. Active Encounters Date Type Department Care Team Description 04/06/2025 Telephone [facility] Pulmonary [address] [place] [address] Maykel Sandoval MA 03/30/2025 9:00 AM EDT Consult Pulmonology - [address] [place] [address] Juany Esposito MD TIMOTEO (obstructive sleep apnea); Mild asthma, unspecified whether complicated, unspecified whether persistent from Last 3 Months Surgical History Surgery Date Site/Laterality Comments KNEE SURGERY 2016 PROCEDURE: HISTORICAL KNEE SURGERY TOTAL KNEE ARTHROPLASTY PROCEDURE: HISTORICAL TOTAL KNEE REPLACE VASECTOMY PROCEDURE: HISTORICAL VASECTOMY KNEE SURGERY PROCEDURE:KNEE SURGERY JOINT REPLACEMENT PROCEDURE:JOINT REPLACEMENT Medical History Medical History Date Comments Asthma 10/30/2017 DX:Asthma Headache 10/30/2017 DX:Headache History of knee replacement 10/30/2017 DX:H istory of knee replacement Morbid obesity with BMI of 4 5.0-49.9, adult (CMS/HCC V24, CMS/HCC V28) 10/30/2017 DX:Morbid obesity wit h BMI of 45.0-49.9, adult ([facility]) Obstructive sleep apnea syndrome 05/08/2017 [...] on file Sexual Orientation Not on file Last Filed Vital Signs Vital Sign Reading Time Taken Comments Blood Pressure 124/66 03/30/2025 8:52 AM EDT Pulse 74 03/30/2025 8:52 AM EDT Temperature 36.4 C (97.5 F) 03/30/2025 8:52 AM EDT Respiratory Rate 20 03/30/2025 8:52 AM EDT Oxygen Saturation 96% 03/30/2025 8:52 AM EDT Inhaled Oxygen Concentration - - Weight 116 kg (255 lb) 03/30/2025 8:52 AM EDT Height 175.3 cm (5' 9 ) 03/30/2025 8:52 AM EDT Body Mass Index 37.66 03/30/2025 8:52 AM EDT Plan of Treatment Upcoming Encounters Date Type Department Care Team (Late st Contact Info) Description 03/30/2026 9:30 AM EDT Office Visit Pulmonology - [place] [address] [place] [address] Juany Esposito MD [facility] [place] [address] Health Maintenance Due Date Last Done Comments Colorectal Cancer Screening: Colonoscopy 1960 Pneumococcal Vaccine: 50+ Years (1 of 2 - PCV) 12/23/1978 RSV Immunization Adult Patients (1 - Risk 50-74 years 1-dose series) 12/23/2009 Hepatitis B Vaccines (2 of 3 - 19+ 3-dose series) 11/10/2019 10/13/2019 Abdominal Aortic Aneurysm (AAA) Screen 05/20/2022 Cholesterol Screening (Lipid Panel) 05/20/2022 Hepatitis C Screening 05/20/2022 Medicare Annual Wellness Visit 05/20/2022 Social Influencers of Health Screening 05/20/2022 Depression Screening 06/11/2024 Falls Risk Assessment 12/23/2024 COVID-19 Vaccine ( season) 2025 03/22/2023, 05/26/2022, 03/14/2022, Additional history exists Influenza Vaccine (#1) 2025 4, 03/22/2023, 03/14/2022, Additional history exists DTaP,Tdap,and Td Vaccines (4 - Td or Tdap) 04/28/2034 04/28/2024, 11/09/2016, 12/31/2012 MMR Vaccines Aged Out 09/10/2018 No longer eligi ble based on patient's age to complete this topic Zoster Vaccines Completed 05/16/2019, 03/03/2019 HIB Vaccines Aged Out No longer eligi [...] to complete this topic RSV Immunization Patients Under 20 months Aged Out No longer eligible based on patient's age to complete this topic Varicella Vaccines Aged Out No longer eligible based on patient's age to complete this topic Insurance BLUE CROSS - [place] MEDICARE ADVANTAGE Care Teams Milk Sampler Relationship Specialty Start Date End Date Donell Arredondo MD [address] [place] [address] PCP - General Internal Medicine 05/23/16
--- OUTSIDE RECORDS SUMMARY | 2025-06-09 10:49 | XMS_ITS | Clinical Summary ---
Author Organization [facility] Prior to 11/08/24 Address [address] [place] [address] Care Team Providers Care Lay Out Inspector Name Role Phone Donell Arredondo MD Primary Care Provider [phone] Allergies No known active allergies Medications Medication [...] age to complete this topic Care Teams Lay Out Inspector Relationship Specialty Start Date End Date Donell Arredondo MD [address] [place] [address] PCP - General Fermenting Cellar Dropper 01/05/17
== END 2025-06-09 09:18 | disposition home or self-care (01) ==
LOC: HO.HNS 08:50
PROVIDERS: PCP Internal Medicine; Visit Provider Physician Assistant
DX: M71.38 Other bursal cyst, other site (principal)
CPT/HCPCS: 99024

== ENCOUNTER → 2025-06-09 08:48 | Outpatient (BNVA) | payer MEDICARE, SELFPAY | PROVIDERS: PCP Internal Medicine; Visit Provider Physician Assistant | DX: Z48.811 Encounter for surgical aftercare following surgery on the nervous system (principal) | CPT/HCPCS: 99212 ==